=== PATIENT | female | born 1950 | race Caucasian/White ===

== ENCOUNTER 2017-11-12 10:06 | Day surgery (SDC) | payer MEDICARE ==
[2017-11-12] MEDS ORDERED: OXYB5TAB11 PO (15:24)
[2017-11-12] MEDS ORDERED: METO-395 PO (15:24)
[2017-11-12] MEDS ORDERED: INSU100C10 SQ (15:24)
[2017-11-12] MEDS ORDERED: LURA20TA PO (15:24)
[2017-11-12] MEDS ORDERED: FLUV25TA3 PO (15:24)
[2017-11-12] MEDS ORDERED: GABA600T2 PO (15:24)
== END 2017-11-12 11:44 | disposition home or self-care (01) ==
LOC: WOUND CARE 10:06
PROVIDERS: ATTEND Surgery
DX: L97.521 Non-pressure chronic ulcer of other part of left foot limited to breakdown of skin (principal); M86.8X7 Other osteomyelitis, ankle and foot
CPT/HCPCS: 11042; 36416; 82948; A6021; A6209

== ENCOUNTER 2017-11-19 08:54 | Day surgery (SDC) | payer MEDICARE ==
[~2017-11-19 08:54] MED LIST: FLUV25TA3 PO; GABA600T2 PO; INSU100C10 SQ; LURA20TA PO; METO-395 PO; OXYB5TAB11 PO
== END 2017-11-19 10:39 | disposition home or self-care (01) ==
LOC: WOUND CARE 08:54
PROVIDERS: ATTEND Surgery
DX: E11.621 Type 2 diabetes mellitus with foot ulcer (principal); L97.521 Non-pressure chronic ulcer of other part of left foot limited to breakdown of skin; E11.69 Type 2 diabetes mellitus with other specified complication; M86.8X7 Other osteomyelitis, ankle and foot; I10 Essential (primary) hypertension; E78.00 Pure hypercholesterolemia, unspecified
CPT/HCPCS: 11042; 36416; 82948; A6021; A6209

== ENCOUNTER 2017-11-26 08:56 | Day surgery (SDC) | payer MEDICARE ==
[2017-11-26] MEDS ORDERED: LIDOcaine 2% 5ml jelly ONE (09:45)
[2017-11-26] MEDS ORDERED: LIDOcaine 1%/PF (10mg/ml) 5ml vial ONE (10:13)
== END 2017-11-26 11:29 | disposition home or self-care (01) ==
LOC: WOUND CARE 08:56
PROVIDERS: ATTEND Surgery
DX: E11.621 Type 2 diabetes mellitus with foot ulcer (principal); L97.521 Non-pressure chronic ulcer of other part of left foot limited to breakdown of skin; E11.69 Type 2 diabetes mellitus with other specified complication; M86.8X7 Other osteomyelitis, ankle and foot; I10 Essential (primary) hypertension; E78.00 Pure hypercholesterolemia, unspecified; Z87.891 Personal history of nicotine dependence; Z90.49 Acquired absence of other specified parts of digestive tract
CPT/HCPCS: 10061; 36416; 82948; 87070; 87075; 87077; 87102; A6021; A6222; A6266; J2001

== ENCOUNTER 2017-11-29 08:50 | Day surgery (SDC) | payer MEDICARE, MEDICAID | END 2017-11-29 11:05 | disposition home or self-care (01) | LOC: WOUND CARE 08:50 | PROVIDERS: ATTEND Surgery | DX: E11.621 Type 2 diabetes mellitus with foot ulcer (principal); L97.521 Non-pressure chronic ulcer of other part of left foot limited to breakdown of skin; L97.411 Non-pressure chronic ulcer of right heel and midfoot limited to breakdown of skin; E11.69 Type 2 diabetes mellitus with other specified complication; I10 Essential (primary) hypertension; M86.8X7 Other osteomyelitis, ankle and foot; E78.00 Pure hypercholesterolemia, unspecified; Z90.49 Acquired absence of other specified parts of digestive tract; Z87.891 Personal history of nicotine dependence | CPT/HCPCS: 11042; 36416; 82948; A6209; A6222; A6266 ==

== ENCOUNTER 2017-12-06 09:05 | Day surgery (SDC) | payer MEDICARE, MEDICAID | END 2017-12-06 11:00 | disposition home or self-care (01) | LOC: WOUND CARE 09:05 | PROVIDERS: ATTEND Surgery | DX: E11.621 Type 2 diabetes mellitus with foot ulcer (principal); L97.521 Non-pressure chronic ulcer of other part of left foot limited to breakdown of skin; L97.411 Non-pressure chronic ulcer of right heel and midfoot limited to breakdown of skin; E11.69 Type 2 diabetes mellitus with other specified complication; M86.8X7 Other osteomyelitis, ankle and foot; I10 Essential (primary) hypertension; E78.00 Pure hypercholesterolemia, unspecified; Z90.49 Acquired absence of other specified parts of digestive tract; Z87.891 Personal history of nicotine dependence | CPT/HCPCS: 11042; 97597; A6021; A6206; A6209; A6212 ==

== ENCOUNTER 2017-12-14 09:40 | Day surgery (SDC) | payer MEDICARE, MEDICAID | END 2017-12-14 11:12 | disposition home or self-care (01) | LOC: WOUND CARE 09:40 | PROVIDERS: ATTEND Surgery | DX: E11.621 Type 2 diabetes mellitus with foot ulcer (principal); L97.521 Non-pressure chronic ulcer of other part of left foot limited to breakdown of skin; L97.411 Non-pressure chronic ulcer of right heel and midfoot limited to breakdown of skin; E11.69 Type 2 diabetes mellitus with other specified complication; M86.8X7 Other osteomyelitis, ankle and foot; I10 Essential (primary) hypertension; E78.00 Pure hypercholesterolemia, unspecified; Z90.49 Acquired absence of other specified parts of digestive tract; Z87.891 Personal history of nicotine dependence | CPT/HCPCS: 11042; 36416; 82948; A6021; A6206; A6212; A6446 ==

== ENCOUNTER 2017-12-21 11:11 | Day surgery (SDC) | payer MEDICARE, MEDICAID | END 2017-12-21 13:16 | disposition home or self-care (01) | LOC: WOUND CARE 11:11 | PROVIDERS: ATTEND Surgery | DX: E11.621 Type 2 diabetes mellitus with foot ulcer (principal); L97.411 Non-pressure chronic ulcer of right heel and midfoot limited to breakdown of skin; L97.521 Non-pressure chronic ulcer of other part of left foot limited to breakdown of skin; E11.69 Type 2 diabetes mellitus with other specified complication; M86.8X7 Other osteomyelitis, ankle and foot; I10 Essential (primary) hypertension; E78.00 Pure hypercholesterolemia, unspecified; Z90.49 Acquired absence of other specified parts of digestive tract; Z87.891 Personal history of nicotine dependence | CPT/HCPCS: 11042; 36416; 82948; 97597; A6021; A6206; A6446 ==

== ENCOUNTER 2017-12-28 09:41 | Day surgery (SDC) | payer MEDICARE, MEDICAID | END 2017-12-28 10:46 | disposition home or self-care (01) | LOC: WOUND CARE 09:41 | PROVIDERS: ATTEND Surgery | DX: E11.621 Type 2 diabetes mellitus with foot ulcer (principal); L97.411 Non-pressure chronic ulcer of right heel and midfoot limited to breakdown of skin; L97.521 Non-pressure chronic ulcer of other part of left foot limited to breakdown of skin; E11.69 Type 2 diabetes mellitus with other specified complication; M86.8X7 Other osteomyelitis, ankle and foot; I10 Essential (primary) hypertension; E78.00 Pure hypercholesterolemia, unspecified; Z90.49 Acquired absence of other specified parts of digestive tract; Z87.891 Personal history of nicotine dependence | CPT/HCPCS: 36416; 82948; 97597; A6021; A6206; A6209 ==

== ENCOUNTER 2018-01-03 09:56 | Day surgery (SDC) | payer MEDICARE, MEDICAID | END 2018-01-03 11:57 | disposition home or self-care (01) | LOC: WOUND CARE 09:56 | PROVIDERS: ATTEND Surgery | DX: E11.621 Type 2 diabetes mellitus with foot ulcer (principal); L97.411 Non-pressure chronic ulcer of right heel and midfoot limited to breakdown of skin; L97.521 Non-pressure chronic ulcer of other part of left foot limited to breakdown of skin; E11.69 Type 2 diabetes mellitus with other specified complication; M86.8X7 Other osteomyelitis, ankle and foot; I10 Essential (primary) hypertension; E78.00 Pure hypercholesterolemia, unspecified; Z90.49 Acquired absence of other specified parts of digestive tract; Z87.891 Personal history of nicotine dependence | CPT/HCPCS: 11042; 36416; 82948; A4414; A6021; A6212; A6446 ==

== ENCOUNTER 2018-01-11 10:12 | Outpatient (CLI) | payer MEDICARE, MEDICAID | END 2018-01-11 11:00 | disposition home or self-care (01) | LOC: WOUND CARE 10:12 | PROVIDERS: ATTEND Surgery | DX: E11.621 Type 2 diabetes mellitus with foot ulcer (principal); L97.411 Non-pressure chronic ulcer of right heel and midfoot limited to breakdown of skin; L97.521 Non-pressure chronic ulcer of other part of left foot limited to breakdown of skin; E11.69 Type 2 diabetes mellitus with other specified complication; M86.8X7 Other osteomyelitis, ankle and foot; I10 Essential (primary) hypertension; E78.00 Pure hypercholesterolemia, unspecified; Z90.49 Acquired absence of other specified parts of digestive tract; Z87.891 Personal history of nicotine dependence | CPT/HCPCS: 36416; 82948; 99211; A4414; A6206; A6209; A6212 ==

== ENCOUNTER 2018-01-18 10:08 | Day surgery (SDC) | payer MEDICARE, MEDICAID | END 2018-01-18 12:21 | disposition home or self-care (01) | LOC: WOUND CARE 10:08 | PROVIDERS: ATTEND Surgery | DX: E11.621 Type 2 diabetes mellitus with foot ulcer (principal); L97.411 Non-pressure chronic ulcer of right heel and midfoot limited to breakdown of skin; L97.521 Non-pressure chronic ulcer of other part of left foot limited to breakdown of skin; E11.69 Type 2 diabetes mellitus with other specified complication; M86.8X7 Other osteomyelitis, ankle and foot; I10 Essential (primary) hypertension; E78.00 Pure hypercholesterolemia, unspecified; Z90.49 Acquired absence of other specified parts of digestive tract; Z87.891 Personal history of nicotine dependence | CPT/HCPCS: 11042; 36416; 82948; A4414; A6021; A6206 ==

== ENCOUNTER 2018-01-25 09:59 | Day surgery (SDC) | payer MEDICARE, MEDICAID | END 2018-01-25 10:39 | disposition home or self-care (01) | LOC: WOUND CARE 09:59 | PROVIDERS: ATTEND Surgery | DX: E11.621 Type 2 diabetes mellitus with foot ulcer (principal); L97.521 Non-pressure chronic ulcer of other part of left foot limited to breakdown of skin; E11.69 Type 2 diabetes mellitus with other specified complication; M86.8X7 Other osteomyelitis, ankle and foot; I10 Essential (primary) hypertension; E78.00 Pure hypercholesterolemia, unspecified; Z90.49 Acquired absence of other specified parts of digestive tract; Z87.891 Personal history of nicotine dependence | CPT/HCPCS: 36416; 82948; 97597; A6021; A6206; A6446 ==

== ENCOUNTER 2018-02-01 10:01 | Outpatient (CLI) | payer MEDICARE, MEDICAID | END 2018-02-01 11:34 | disposition home or self-care (01) | LOC: WOUND CARE 10:01 | PROVIDERS: ATTEND Surgery | DX: E11.621 Type 2 diabetes mellitus with foot ulcer (principal); L97.521 Non-pressure chronic ulcer of other part of left foot limited to breakdown of skin; E11.69 Type 2 diabetes mellitus with other specified complication; M86.8X7 Other osteomyelitis, ankle and foot; I10 Essential (primary) hypertension; E78.00 Pure hypercholesterolemia, unspecified; Z90.49 Acquired absence of other specified parts of digestive tract; Z87.891 Personal history of nicotine dependence | CPT/HCPCS: 36416; 82948; 99211; A6212; A6446 ==

== ENCOUNTER 2018-02-01 11:27 | Inpatient (IN) | payer MEDICARE, MEDICAID ==
[~2018-02-01] VITALS: Ht 172.7 cm; Wt 90.9 kg
[2018-02-01] MEDS ORDERED: CefTRIAXone 2gm/D5W 50ml 50 ML IV ONE (13:45)
[2018-02-01] MEDS ORDERED: ondansetron/PF 4mg/2ml inj IV PRN (14:25)
[2018-02-01] MEDS ORDERED: dextrose 50%-water 50ml dispensing syringe IV PRN ×2 (14:25)
[2018-02-01] MEDS ORDERED: MESSAGE TO PHARMACY PO ONE (14:25)
[2018-02-01] MEDS ORDERED: glucagon, human recombinant 1mg kit SUBCUT PRN (14:25)
[2018-02-01] MEDS ORDERED: dextrose ORAL solution 15 GM/59 ML bottle PO PRN ×2 (14:25)
[2018-02-01] MEDS ORDERED: magnesium hydroxide 30ml (MOM) UD suspension PO PRN (14:25)
[2018-02-01] MEDS ORDERED: morphine 4 MG/ML inj SYRINge IV PRN (14:25)
[2018-02-01] MEDS ORDERED: mag hydrox/Alum hydrox/simeth 30ml oral suspension PO PRN (14:25)
[2018-02-01] MEDS ORDERED: acetaminophen 325mg tablet PO PRN (14:25)
[2018-02-01 14:36] LABS: BASOPHILS # (AUTO) 0.1 X10'3 (0-0.2); BASOPHILS % (AUTO) 1.3 % (0-1); EOSINOPHILS # (AUTO) 0.2 X10'3 (0-0.9); EOSINOPHILS % (AUTO) 1.7 % (0-6); HEMATOCRIT 32.4 % (35.0-45.0); HEMOGLOBIN 11.2 g/dl (12.0-16.0); LYMPHOCYTES # (AUTO) 1.9 X10'3 (1.1-4.8); LYMPHOCYTES % (AUTO) 16.6 % (21-51); MEAN CORPUSCULAR HEMOGLOBIN 29.6 PG (27.0-31.0); MEAN CORPUSCULAR HGB CONC 34.5 % (33.0-36.5); MEAN CORPUSCULAR VOLUME 85.9 FL (78-98); MEAN PLATELET VOLUME 7.5 FL (7.4-10.4); MONOCYTES # (AUTO) 0.8 X10'3 (0-0.9); MONOCYTES % (AUTO) 6.8 % (2-12); NEUTROPHILS # (AUTO) 8.2 X10'3 (1.8-7.7); NEUTROPHILS % (AUTO) 73.6 % (42-75); PLATELET COUNT 200 X10'3 (140-440); RED BLOOD COUNT 3.77 X10'6 (4.20-5.60); RED CELL DISTRIBUTION WIDTH 14.3 % (11.5-14.5); WHITE BLOOD COUNT 11.2 X10'3 (4.5-11.0)
[2018-02-01 14:46] LABS: PARTIAL THROMBOPLASTIN TIME 32 SECONDS (22-32)
[2018-02-01 14:51] LABS: ALANINE AMINOTRANSFERASE 19 U/L (12-78); ALBUMIN 2.9 G/DL (3.4-5.0); ALBUMIN/GLOBULIN RATIO 0.6 (1.1-1.5); ALKALINE PHOSPHATASE 63 IU/L (46-116); ANION GAP 11 (8-16); ASPARTATE AMINO TRANSFERASE 11 U/L (10-37); BILIRUBIN,TOTAL 0.5 MG/DL (0.1-1.0); BLOOD UREA NITROGEN 51 MG/DL (7-18); BUN/CREATININE RATIO 24.2 (6.6-38.0); CALCIUM 9.3 MG/DL (8.5-10.1); CHLORIDE 107 MMOL/L (99-107); CREATININE 2.11 MG/DL (0.40-0.90); GLUCOSE 145 MG/DL (70-104); MAGNESIUM 1.9 MG/DL (1.5-2.4); POTASSIUM 4.4 MMOL/L (3.5-5.1); SODIUM 142 MMOL/L (135-145); TOTAL PROTEIN 7.4 G/DL (6.4-8.2); eGFR 23 ML/MIN
[2018-02-01] MEDS ORDERED: vancomycin/NS 1 GM ADD-VANTAGE 250 ML X 1 DOSE IV ONE ×2 (15:00→17:30)
[2018-02-01 15:56] LABS: HEMOGLOBIN A1C 6.7 % (4.5-6.2)
[2018-02-01 18:10] LABS: CLARITY,URINE Clear (Clear); COLOR,URINE Yellow (Yellow); GLUCOSE, URINE Negative (Neg); KETONES,URINE Negative (Neg); LEUKOCYTE ESTERASE ,URINE Trace (Neg); NITRITES, URINE Negative (Neg); OCCULT BLOOD,URINE Negative (Neg); PROTEIN,URINE Negative (Neg)
[2018-02-01 18:11] LABS: UA COLLECTION TYPE CLN CATCH MIDSTREAM
[2018-02-01 18:28] LABS: BACTERIA,URINE NONE SEEN /HPF (Neg); RBC,URINE 0-2 /HPF (0-2); SQUAMOUS EPITHELIAL CELL,UR FEW /LPF (FEW)
[2018-02-01 19:15] VITALS: BP 127/52
[2018-02-01] MEDS: HYDROcodone/acetaminophen 5mg/325mg tablet PO PRN (20:49)
[2018-02-01] MEDS: docusate sod 100mg capsule PO SCH (20:49)
[2018-02-01] MEDS: oxybutynin 5mg tablet PO SCH (20:49)
[2018-02-01] MEDS: insulin glargine (Lantus) pen - multi-dose SQ SCH (21:00)
[2018-02-01] MEDS ORDERED: temazepam 15mg capsule PO ONE (22:15)
[2018-02-02] VITALS: BP 134/35
[2018-02-02] MEDS: gabapentin 300mg capsule PO SCH ×3 (00:34→16:41)
[2018-02-02 05:54] LABS: BASOPHILS % (AUTO) 0.5 % (0-1); EOSINOPHILS # (AUTO) 0.3 X10'3 (0-0.9); EOSINOPHILS % (AUTO) 3.3 % (0-6); HEMATOCRIT 28.2 % (35.0-45.0); HEMOGLOBIN 9.8 g/dl (12.0-16.0); LYMPHOCYTES # (AUTO) 1.9 X10'3 (1.1-4.8); LYMPHOCYTES % (AUTO) 22.5 % (21-51); MEAN CORPUSCULAR HEMOGLOBIN 29.5 PG (27.0-31.0); MEAN CORPUSCULAR HGB CONC 34.6 % (33.0-36.5); MEAN CORPUSCULAR VOLUME 85.4 FL (78-98); MEAN PLATELET VOLUME 8.2 FL (7.4-10.4); MONOCYTES # (AUTO) 0.6 X10'3 (0-0.9); MONOCYTES % (AUTO) 6.8 % (2-12); NEUTROPHILS # (AUTO) 5.8 X10'3 (1.8-7.7); NEUTROPHILS % (AUTO) 66.9 % (42-75); PLATELET COUNT 173 X10'3 (140-440); RED BLOOD COUNT 3.31 X10'6 (4.20-5.60); RED CELL DISTRIBUTION WIDTH 13.5 % (11.5-14.5); WHITE BLOOD COUNT 8.6 X10'3 (4.5-11.0)
[2018-02-02 06:04] LABS: ALANINE AMINOTRANSFERASE 17 U/L (12-78); ALBUMIN 2.4 G/DL (3.4-5.0); ALBUMIN/GLOBULIN RATIO 0.6 (1.1-1.5); ALKALINE PHOSPHATASE 56 IU/L (46-116); ANION GAP 9 (8-16); ASPARTATE AMINO TRANSFERASE 9 U/L (10-37); BILIRUBIN,TOTAL 0.3 MG/DL (0.1-1.0); BLOOD UREA NITROGEN 49 MG/DL (7-18); BUN/CREATININE RATIO 22.4 (6.6-38.0); CALCIUM 8.5 MG/DL (8.5-10.1); CHLORIDE 109 MMOL/L (99-107); CREATININE 2.19 MG/DL (0.40-0.90); GLUCOSE 167 MG/DL (70-104); MAGNESIUM 1.6 MG/DL (1.5-2.4); PHOSPHORUS 4.7 MG/DL (2.3-4.5); POTASSIUM 4.4 MMOL/L (3.5-5.1); SODIUM 141 MMOL/L (135-145); TOTAL CARBON DIOXIDE 23.2 MMOL/L (24-32); TOTAL PROTEIN 6.3 G/DL (6.4-8.2); eGFR 22 ML/MIN
[2018-02-02] MEDS: CefTRIAXone/D5W-Rocephin 1gm 50 ML IV SCH (07:44)
[2018-02-02] MEDS: docusate sod 100mg capsule PO SCH ×2 (07:45→22:41)
[2018-02-02] MEDS: oxybutynin 5mg tablet PO SCH ×3 (07:46→22:40)
[2018-02-02] MEDS: HYDROcodone/acetaminophen 5mg/325mg tablet PO PRN ×2 (07:47→22:40)
[2018-02-02 08:00] VITALS: BP 124/43
[2018-02-02] MEDS ORDERED: enoxaparin 40mg/0.4ml syringe SUBCUT SCH (08:00)
[2018-02-02 11:00] VITALS: BP 138/57
[2018-02-02] MEDS: insulin Lispro (HumaLOG) vial - multi-dose SQ SCH ×2 (13:43→19:54)
[2018-02-02] MEDS: vancomycin inj 1,250 MG in normal saline 250ml IV soln 250 ML IV SCH (16:42)
[2018-02-02 20:00] VITALS: BP 130/50
[2018-02-02] MEDS: temazepam 15mg capsule PO PRN (22:39)
[2018-02-02] MEDS: lactobacillus rhamnosus 10,000 MMU CELLS/CAPSULE PO SCH (22:40)
[2018-02-02] MEDS: insulin glargine (Lantus) pen - multi-dose SQ SCH (22:53)
[2018-02-03] VITALS: BP 137/80
[2018-02-03] MEDS: gabapentin 300mg capsule PO SCH ×3 (00:11→17:04)
[2018-02-03] MEDS: metroNIDAZOLE-Flagyl 500mg/NS 100 ML IV SCH ×3 (00:11→17:05)
[2018-02-03 05:48] LABS: BASOPHILS % (AUTO) 0.5 % (0-1); EOSINOPHILS # (AUTO) 0.3 X10'3 (0-0.9); EOSINOPHILS % (AUTO) 4.6 % (0-6); HEMOGLOBIN 10.8 g/dl (12.0-16.0); LYMPHOCYTES % (AUTO) 28.3 % (21-51); MEAN CORPUSCULAR HEMOGLOBIN 29.7 PG (27.0-31.0); MEAN CORPUSCULAR HGB CONC 34.8 % (33.0-36.5); MEAN CORPUSCULAR VOLUME 85.4 FL (78-98); MEAN PLATELET VOLUME 7.4 FL (7.4-10.4); MONOCYTES # (AUTO) 0.6 X10'3 (0-0.9); MONOCYTES % (AUTO) 7.8 % (2-12); NEUTROPHILS # (AUTO) 4.2 X10'3 (1.8-7.7); NEUTROPHILS % (AUTO) 58.8 % (42-75); PLATELET COUNT 230 X10'3 (140-440); RED BLOOD COUNT 3.62 X10'6 (4.20-5.60); RED CELL DISTRIBUTION WIDTH 14.3 % (11.5-14.5); WHITE BLOOD COUNT 7.2 X10'3 (4.5-11.0)
[2018-02-03 06:06] LABS: ALANINE AMINOTRANSFERASE 16 U/L (12-78); ALBUMIN 2.6 G/DL (3.4-5.0); ALBUMIN/GLOBULIN RATIO 0.6 (1.1-1.5); ALKALINE PHOSPHATASE 64 IU/L (46-116); ANION GAP 13 (8-16); ASPARTATE AMINO TRANSFERASE 10 U/L (10-37); BILIRUBIN,TOTAL 0.3 MG/DL (0.1-1.0); BLOOD UREA NITROGEN 49 MG/DL (7-18); BUN/CREATININE RATIO 24.4 (6.6-38.0); CALCIUM 8.9 MG/DL (8.5-10.1); CHLORIDE 108 MMOL/L (99-107); CREATININE 2.01 MG/DL (0.40-0.90); GLUCOSE 136 MG/DL (70-104); MAGNESIUM 1.8 MG/DL (1.5-2.4); PHOSPHORUS 5.7 MG/DL (2.3-4.5); POTASSIUM 4.6 MMOL/L (3.5-5.1); SODIUM 143 MMOL/L (135-145); eGFR 25 ML/MIN
[2018-02-03 08:00] VITALS: BP 142/50
[2018-02-03] MEDS: CefTRIAXone/D5W-Rocephin 1gm 50 ML IV SCH (09:11)
[2018-02-03] MEDS: oxybutynin 5mg tablet PO SCH ×3 (09:27→20:48)
[2018-02-03] MEDS: lactobacillus rhamnosus 10,000 MMU CELLS/CAPSULE PO SCH ×2 (09:27→20:48)
[2018-02-03] MEDS: docusate sod 100mg capsule PO SCH ×2 (09:27→20:48)
[2018-02-03] MEDS: enoxaparin 30mg/0.3ml syringe SUBCUT SCH (09:28)
[2018-02-03] MEDS: insulin Lispro (HumaLOG) vial - multi-dose SQ SCH ×3 (09:37→19:16)
[2018-02-03 12:00] VITALS: BP 141/71
[2018-02-03] MEDS: vancomycin inj 1,250 MG in normal saline 250ml IV soln 250 ML IV SCH (17:45)
[2018-02-03 20:00] VITALS: BP 134/50
[2018-02-03] MEDS: insulin glargine (Lantus) pen - multi-dose SQ SCH (22:18)
[2018-02-04] VITALS (23 sets, daily range): BP systolic 113–150; BP diastolic 27–67
[2018-02-04] MEDS: temazepam 15mg capsule PO PRN (00:05)
[2018-02-04] MEDS: gabapentin 300mg capsule PO SCH ×2 (00:05→08:30)
[2018-02-04] MEDS: metroNIDAZOLE-Flagyl 500mg/NS 100 ML IV SCH ×3 (00:08→15:27)
[2018-02-04 05:37] LABS: BASOPHILS # (AUTO) 0.1 X10'3 (0-0.2); BASOPHILS % (AUTO) 0.8 % (0-1); EOSINOPHILS # (AUTO) 0.3 X10'3 (0-0.9); EOSINOPHILS % (AUTO) 4.6 % (0-6); HEMATOCRIT 30.4 % (35.0-45.0); HEMOGLOBIN 10.4 g/dl (12.0-16.0); LYMPHOCYTES # (AUTO) 1.6 X10'3 (1.1-4.8); LYMPHOCYTES % (AUTO) 25.5 % (21-51); MEAN CORPUSCULAR HEMOGLOBIN 29.1 PG (27.0-31.0); MEAN CORPUSCULAR HGB CONC 34.2 % (33.0-36.5); MEAN CORPUSCULAR VOLUME 85.2 FL (78-98); MEAN PLATELET VOLUME 7.3 FL (7.4-10.4); MONOCYTES # (AUTO) 0.4 X10'3 (0-0.9); NEUTROPHILS % (AUTO) 63.1 % (42-75); PLATELET COUNT 218 X10'3 (140-440); RED BLOOD COUNT 3.57 X10'6 (4.20-5.60); RED CELL DISTRIBUTION WIDTH 14.1 % (11.5-14.5); WHITE BLOOD COUNT 6.3 X10'3 (4.5-11.0)
[2018-02-04 05:54] LABS: INR 1.1 INR; PRE OP PARTIAL THROMB. TIME 26 SECONDS (22-35); PROTHROMBIN TIME 10.9 SECONDS (9.0-12.0)
[2018-02-04 06:31] LABS: ALANINE AMINOTRANSFERASE 15 U/L (12-78); ALBUMIN 2.5 G/DL (3.4-5.0); ALBUMIN/GLOBULIN RATIO 0.6 (1.1-1.5); ALKALINE PHOSPHATASE 59 IU/L (46-116); ANION GAP 10 (8-16); ASPARTATE AMINO TRANSFERASE 9 U/L (10-37); BILIRUBIN,TOTAL 0.3 MG/DL (0.1-1.0); BLOOD UREA NITROGEN 48 MG/DL (7-18); BUN/CREATININE RATIO 25.3 (6.6-38.0); CHLORIDE 108 MMOL/L (99-107); GLUCOSE 148 MG/DL (70-104); MAGNESIUM 1.8 MG/DL (1.5-2.4); PHOSPHORUS 4.5 MG/DL (2.3-4.5); POTASSIUM 4.7 MMOL/L (3.5-5.1); SODIUM 142 MMOL/L (135-145); TOTAL CARBON DIOXIDE 23.8 MMOL/L (24-32); TOTAL PROTEIN 6.6 G/DL (6.4-8.2); eGFR 26 ML/MIN
[2018-02-04] MEDS: CefTRIAXone/D5W-Rocephin 1gm 50 ML IV SCH (08:00)
[2018-02-04] MEDS: enoxaparin 30mg/0.3ml syringe SUBCUT SCH (08:00)
[2018-02-04] MEDS: insulin Lispro (HumaLOG) vial - multi-dose SQ SCH ×2 (08:29→19:41)
[2018-02-04] MEDS: docusate sod 100mg capsule PO SCH ×2 (08:30→21:02)
[2018-02-04] MEDS: lactobacillus rhamnosus 10,000 MMU CELLS/CAPSULE PO SCH ×2 (08:30→21:02)
[2018-02-04] MEDS: oxybutynin 5mg tablet PO SCH ×3 (08:30→21:03)
[2018-02-04] MEDS ORDERED: BUPIVAcaine/PF 2.5 mg/ml (0.25%) 30ml vial ONE (09:07)
[2018-02-04] MEDS ORDERED: fentaNYL/PF 50MCG/1 ML 2ML syringe ONE (10:19)
[2018-02-04] MEDS ORDERED: sevoflurane 250ml liquid IH ONE (10:29)
[2018-02-04] MEDS ORDERED: ondansetron/PF 4mg/2ml inj ONE (10:35)
[2018-02-04] MEDS ORDERED: propofol inj 20 ML IV ONE (10:35)
[2018-02-04] MEDS ORDERED: LIDOcaine 2% (20mg/ml) 5ml vial ONE (10:35)
[2018-02-04] MEDS ORDERED: ringers solution, lacted 1,000 ML IV ONE (10:44)
[2018-02-04] MEDS ORDERED: meperidine/PF 50mg/ml syringe IV PRN ×2 (10:45)
[2018-02-04] MEDS ORDERED: ondansetron/PF 4mg/2ml inj IV PRN (10:45)
[2018-02-04] MEDS ORDERED: morphine 4 MG/ML inj SYRINge IV PRN ×2 (10:45)
[2018-02-04] MEDS ORDERED: hydrALAZINE 20mg/ml inj. IV PRN (10:45)
[2018-02-04] MEDS ORDERED: labetalol 20mg/4ml (5mg/ml) syringe IV PRN (10:45)
[2018-02-04] MEDS ORDERED: meperidine/PF 50mg/ml syringe IV ONE (10:45)
[2018-02-04] MEDS ORDERED: povidone-iodine 10% topical ointment 28.4gm TP ONE (11:14)
[2018-02-04] MEDS: normal saline 1000ml 1,000 ML IV SCH (15:27)
[2018-02-04] MEDS: gabapentin 100mg capsule PO SCH (15:27)
[2018-02-04] MEDS: vancomycin inj 1,250 MG in normal saline 250ml IV soln 250 ML IV SCH (17:09)
[2018-02-04] MEDS: HYDROcodone/acetaminophen 5mg/325mg tablet PO PRN (21:03)
[2018-02-04] MEDS: insulin glargine (Lantus) pen - multi-dose SQ SCH (22:00)
[2018-02-05] VITALS: BP 124/52
[2018-02-05] MEDS: gabapentin 100mg capsule PO SCH ×4 (00:32→23:03)
[2018-02-05] MEDS: temazepam 15mg capsule PO PRN ×2 (00:32→23:03)
[2018-02-05] MEDS: metroNIDAZOLE-Flagyl 500mg/NS 100 ML IV SCH ×4 (00:32→23:03)
[2018-02-05 05:34] LABS: BASOPHILS % (AUTO) 0.5 % (0-1); EOSINOPHILS # (AUTO) 0.3 X10'3 (0-0.9); EOSINOPHILS % (AUTO) 4.2 % (0-6); HEMATOCRIT 29.5 % (35.0-45.0); HEMOGLOBIN 10.1 g/dl (12.0-16.0); LYMPHOCYTES # (AUTO) 1.1 X10'3 (1.1-4.8); LYMPHOCYTES % (AUTO) 14.4 % (21-51); MEAN CORPUSCULAR HEMOGLOBIN 29.4 PG (27.0-31.0); MEAN CORPUSCULAR HGB CONC 34.3 % (33.0-36.5); MEAN CORPUSCULAR VOLUME 85.9 FL (78-98); MONOCYTES # (AUTO) 0.5 X10'3 (0-0.9); MONOCYTES % (AUTO) 6.3 % (2-12); NEUTROPHILS # (AUTO) 5.6 X10'3 (1.8-7.7); NEUTROPHILS % (AUTO) 74.6 % (42-75); PLATELET COUNT 220 X10'3 (140-440); RED BLOOD COUNT 3.44 X10'6 (4.20-5.60); RED CELL DISTRIBUTION WIDTH 14.2 % (11.5-14.5); WHITE BLOOD COUNT 7.6 X10'3 (4.5-11.0)
[2018-02-05 05:37] LABS: ALANINE AMINOTRANSFERASE 158 U/L (12-78); ALBUMIN 2.4 G/DL (3.4-5.0); ALBUMIN/GLOBULIN RATIO 0.6 (1.1-1.5); ALKALINE PHOSPHATASE 179 IU/L (46-116); ANION GAP 8 (8-16); ASPARTATE AMINO TRANSFERASE 164 U/L (10-37); BILIRUBIN,TOTAL 0.3 MG/DL (0.1-1.0); BLOOD UREA NITROGEN 39 MG/DL (7-18); BUN/CREATININE RATIO 23.4 (6.6-38.0); CALCIUM 8.7 MG/DL (8.5-10.1); CHLORIDE 109 MMOL/L (99-107); CREATININE 1.67 MG/DL (0.40-0.90); GLUCOSE 111 MG/DL (70-104); MAGNESIUM 1.8 MG/DL (1.5-2.4); PHOSPHORUS 3.8 MG/DL (2.3-4.5); POTASSIUM 5.4 MMOL/L (3.5-5.1); SODIUM 143 MMOL/L (135-145); TOTAL PROTEIN 6.2 G/DL (6.4-8.2); eGFR 30 ML/MIN
[2018-02-05] MEDS: normal saline 1000ml 1,000 ML IV SCH ×3 (06:00→23:06)
[2018-02-05 07:00] VITALS: BP 128/44
[2018-02-05] MEDS: HYDROcodone/acetaminophen 5mg/325mg tablet PO PRN (08:10)
[2018-02-05] MEDS: CefTRIAXone/D5W-Rocephin 1gm 50 ML IV SCH (08:10)
[2018-02-05] MEDS: docusate sod 100mg capsule PO SCH ×2 (08:11→19:27)
[2018-02-05] MEDS: enoxaparin 30mg/0.3ml syringe SUBCUT SCH (08:11)
[2018-02-05] MEDS: oxybutynin 5mg tablet PO SCH ×3 (08:11→21:52)
[2018-02-05] MEDS: lactobacillus rhamnosus 10,000 MMU CELLS/CAPSULE PO SCH ×2 (08:11→19:27)
[2018-02-05] MEDS: insulin Lispro (HumaLOG) vial - multi-dose SQ SCH ×3 (08:58→19:26)
[2018-02-05 12:00] VITALS: BP 118/37
[2018-02-05] MEDS: oxyCODONE IR 5mg (immed. release) tablet PO PRN (14:32)
[2018-02-05] MEDS ORDERED: VANCOMYCIN LEVEL IV NR (15:30)
[2018-02-05 18:00] VITALS: BP 135/51
[2018-02-05] MEDS: vancomycin/NS 1 GM ADD-VANTAGE 250 ML IV SCH (19:27)
[2018-02-05] MEDS: insulin glargine (Lantus) pen - multi-dose SQ SCH (21:00)
[2018-02-06] VITALS: BP 163/61
[2018-02-06 05:36] LABS: BASOPHILS % (AUTO) 0.5 % (0-1); EOSINOPHILS # (AUTO) 0.4 X10'3 (0-0.9); EOSINOPHILS % (AUTO) 4.8 % (0-6); HEMATOCRIT 27.1 % (35.0-45.0); HEMOGLOBIN 9.3 g/dl (12.0-16.0); LYMPHOCYTES # (AUTO) 1.6 X10'3 (1.1-4.8); LYMPHOCYTES % (AUTO) 20.9 % (21-51); MEAN CORPUSCULAR HEMOGLOBIN 29.3 PG (27.0-31.0); MEAN CORPUSCULAR HGB CONC 34.2 % (33.0-36.5); MEAN CORPUSCULAR VOLUME 85.7 FL (78-98); MEAN PLATELET VOLUME 6.9 FL (7.4-10.4); MONOCYTES # (AUTO) 0.6 X10'3 (0-0.9); MONOCYTES % (AUTO) 7.4 % (2-12); NEUTROPHILS % (AUTO) 66.4 % (42-75); PLATELET COUNT 211 X10'3 (140-440); RED BLOOD COUNT 3.16 X10'6 (4.20-5.60); RED CELL DISTRIBUTION WIDTH 13.9 % (11.5-14.5); WHITE BLOOD COUNT 7.5 X10'3 (4.5-11.0)
[2018-02-06 05:55] LABS: ALANINE AMINOTRANSFERASE 96 U/L (12-78); ALBUMIN 2.3 G/DL (3.4-5.0); ALBUMIN/GLOBULIN RATIO 0.6 (1.1-1.5); ALKALINE PHOSPHATASE 131 IU/L (46-116); ANION GAP 9 (8-16); ASPARTATE AMINO TRANSFERASE 50 U/L (10-37); BILIRUBIN,TOTAL 0.2 MG/DL (0.1-1.0); BLOOD UREA NITROGEN 33 MG/DL (7-18); BUN/CREATININE RATIO 20.4 (6.6-38.0); CALCIUM 8.7 MG/DL (8.5-10.1); CHLORIDE 108 MMOL/L (99-107); CREATININE 1.62 MG/DL (0.40-0.90); GLUCOSE 127 MG/DL (70-104); MAGNESIUM 1.7 MG/DL (1.5-2.4); PHOSPHORUS 3.8 MG/DL (2.3-4.5); POTASSIUM 4.6 MMOL/L (3.5-5.1); SODIUM 143 MMOL/L (135-145); TOTAL CARBON DIOXIDE 26.1 MMOL/L (24-32); eGFR 32 ML/MIN
[2018-02-06 07:06] VITALS: BP 147/50
[2018-02-06] MEDS: docusate sod 100mg capsule PO SCH ×2 (09:01→19:33)
[2018-02-06] MEDS: enoxaparin 30mg/0.3ml syringe SUBCUT SCH (09:01)
[2018-02-06] MEDS: CefTRIAXone/D5W-Rocephin 1gm 50 ML IV SCH (09:01)
[2018-02-06] MEDS: gabapentin 100mg capsule PO SCH (09:02)
[2018-02-06] MEDS: lactobacillus rhamnosus 10,000 MMU CELLS/CAPSULE PO SCH ×2 (09:02→19:33)
[2018-02-06] MEDS: oxybutynin 5mg tablet PO SCH ×3 (09:02→21:43)
[2018-02-06] MEDS: metroNIDAZOLE-Flagyl 500mg/NS 100 ML IV SCH ×3 (09:42→23:33)
[2018-02-06 11:30] VITALS: BP 161/42
[2018-02-06] MEDS: insulin Lispro (HumaLOG) vial - multi-dose SQ SCH ×2 (13:37→19:41)
[2018-02-06] MEDS: oxyCODONE IR 5mg (immed. release) tablet PO PRN ×2 (13:39→17:58)
[2018-02-06] MEDS: gabapentin 400mg capsule PO SCH ×2 (16:57→23:33)
[2018-02-06] MEDS: normal saline 1000ml 1,000 ML IV SCH (16:58)
[2018-02-06 18:00] VITALS: BP 152/52
[2018-02-06] MEDS: vancomycin/NS 1 GM ADD-VANTAGE 250 ML IV SCH (19:33)
[2018-02-06] MEDS: insulin glargine (Lantus) pen - multi-dose SQ SCH (21:00)
[2018-02-06] MEDS: temazepam 15mg capsule PO PRN (23:33)
[2018-02-07] VITALS: BP 153/58
[2018-02-07 06:20] LABS: ALANINE AMINOTRANSFERASE 67 U/L (12-78); ALBUMIN 2.3 G/DL (3.4-5.0); ALBUMIN/GLOBULIN RATIO 0.6 (1.1-1.5); ALKALINE PHOSPHATASE 116 IU/L (46-116); ANION GAP 9 (8-16); ASPARTATE AMINO TRANSFERASE 43 U/L (10-37); BILIRUBIN,TOTAL 0.3 MG/DL (0.1-1.0); BLOOD UREA NITROGEN 28 MG/DL (7-18); BUN/CREATININE RATIO 18.7 (6.6-38.0); CALCIUM 8.7 MG/DL (8.5-10.1); CHLORIDE 109 MMOL/L (99-107); GLUCOSE 114 MG/DL (70-104); POTASSIUM 4.4 MMOL/L (3.5-5.1); SODIUM 143 MMOL/L (135-145); TOTAL PROTEIN 6.1 G/DL (6.4-8.2); eGFR 34 ML/MIN
[2018-02-07] MEDS: metroNIDAZOLE-Flagyl 500mg/NS 100 ML IV SCH (07:45)
[2018-02-07] MEDS: docusate sod 100mg capsule PO SCH ×2 (07:46→20:31)
[2018-02-07] MEDS: lactobacillus rhamnosus 10,000 MMU CELLS/CAPSULE PO SCH ×2 (07:46→20:31)
[2018-02-07] MEDS: gabapentin 400mg capsule PO SCH ×3 (07:47→22:47)
[2018-02-07] MEDS: oxybutynin 5mg tablet PO SCH ×3 (07:47→20:31)
[2018-02-07] MEDS: enoxaparin 40mg/0.4ml syringe SUBCUT SCH (07:48)
[2018-02-07 07:54] VITALS: BP 144/59
[2018-02-07] MEDS: CefTRIAXone/D5W-Rocephin 1gm 50 ML IV SCH (09:38)
[2018-02-07] MEDS: insulin Lispro (HumaLOG) vial - multi-dose SQ SCH ×3 (09:48→18:58)
[2018-02-07] MEDS: normal saline 1000ml 1,000 ML IV SCH (11:23)
[2018-02-07] MEDS: oxyCODONE IR 5mg (immed. release) tablet PO PRN (11:23)
[2018-02-07 13:25] VITALS: BP 154/63
[2018-02-07 20:00] VITALS: BP 144/42
[2018-02-07] MEDS: metroNIDAZOLE 500mg tablet PO SCH (20:31)
[2018-02-07] MEDS: temazepam 15mg capsule PO PRN (22:46)
[2018-02-08] VITALS: BP 162/48
[2018-02-08] MEDS: normal saline 1000ml 1,000 ML IV SCH (01:48)
[2018-02-08 06:08] LABS: ALANINE AMINOTRANSFERASE 59 U/L (12-78); ALBUMIN 2.4 G/DL (3.4-5.0); ALBUMIN/GLOBULIN RATIO 0.6 (1.1-1.5); ALKALINE PHOSPHATASE 107 IU/L (46-116); ANION GAP 7 (8-16); ASPARTATE AMINO TRANSFERASE 34 U/L (10-37); BILIRUBIN,TOTAL 0.3 MG/DL (0.1-1.0); BLOOD UREA NITROGEN 26 MG/DL (7-18); BUN/CREATININE RATIO 17.4 (6.6-38.0); CHLORIDE 108 MMOL/L (99-107); CREATININE 1.49 MG/DL (0.40-0.90); GLUCOSE 111 MG/DL (70-104); POTASSIUM 4.4 MMOL/L (3.5-5.1); SODIUM 141 MMOL/L (135-145); TOTAL CARBON DIOXIDE 25.8 MMOL/L (24-32); TOTAL PROTEIN 6.1 G/DL (6.4-8.2); eGFR 35 ML/MIN
[2018-02-08] MEDS: docusate sod 100mg capsule PO SCH ×2 (07:20→19:19)
[2018-02-08] MEDS: metroNIDAZOLE 500mg tablet PO SCH ×2 (07:20→19:19)
[2018-02-08] MEDS: lactobacillus rhamnosus 10,000 MMU CELLS/CAPSULE PO SCH ×2 (07:20→19:19)
[2018-02-08] MEDS: oxybutynin 5mg tablet PO SCH ×3 (07:21→21:26)
[2018-02-08] MEDS: gabapentin 400mg capsule PO SCH ×2 (07:21→16:02)
[2018-02-08] MEDS: enoxaparin 40mg/0.4ml syringe SUBCUT SCH (07:22)
[2018-02-08 07:30] VITALS: BP 162/55
[2018-02-08] MEDS: insulin Lispro (HumaLOG) vial - multi-dose SQ SCH ×3 (10:12→19:21)
[2018-02-08 11:18] VITALS: BP 162/66
[2018-02-08] MEDS ORDERED: amLODIPine 5mg tablet PO ONE (17:30)
[2018-02-08] MEDS ORDERED: VANCOMYCIN LEVEL IV ONE (19:30)
[2018-02-08] MEDS: temazepam 15mg capsule PO PRN (21:26)
[2018-02-09 07:08] VITALS: BP 154/45
[2018-02-09] MEDS: docusate sod 100mg capsule PO SCH ×2 (08:00→08:11)
[2018-02-09] MEDS ORDERED: levoFLOXACIN 750MG TABLET PO SCH (08:00)
[2018-02-09] MEDS ORDERED: amLODIPine 5mg tablet PO SCH (08:00)
[2018-02-09] MEDS: gabapentin 400mg capsule PO SCH ×2 (08:11)
[2018-02-09] MEDS: metroNIDAZOLE 500mg tablet PO SCH (08:12)
[2018-02-09] MEDS: oxybutynin 5mg tablet PO SCH ×2 (08:12→12:40)
[2018-02-09] MEDS: lactobacillus rhamnosus 10,000 MMU CELLS/CAPSULE PO SCH (08:12)
[2018-02-09] MEDS: insulin Lispro (HumaLOG) vial - multi-dose SQ SCH (08:15)
[2018-02-09] MEDS: enoxaparin 40mg/0.4ml syringe SUBCUT SCH (08:16)
[2018-02-09 11:00] VITALS: BP 159/76
[2018-02-09 12:00] VITALS: BP_SYST 124; BP_SYST 159; BP_DIAS 69; BP_DIAS 76
[2018-02-09] MEDS ORDERED: METR500T4 PO (13:02)
[2018-02-09] MEDS ORDERED: AMLO5TAB16 PO (13:02)
[2018-02-09] MEDS ORDERED: LEVO750T46 PO (13:02)
[2018-03-04] MEDS ORDERED: CLIN300C70 PO (14:32)
== END 2018-02-09 16:06 | disposition home health service (06) | DRG 617 ==
LOC: ER 11:28 → ED HOLD 14:22 → SUR 3N 19:12
PROVIDERS: ADMIT Internal Medicine; ATTEND Family Medicine
PROC: 0Y6Y0Z0 Detachment at Left 5th Toe, Complete, Open Approach (ICD-10-PCS; principal; 2018-02-04 10:20)
DX: E11.69 Type 2 diabetes mellitus with other specified complication (principal); L03.116 Cellulitis of left lower limb; M86.172 Other acute osteomyelitis, left ankle and foot; N17.9 Acute kidney failure, unspecified; E66.9 Obesity, unspecified; E86.0 Dehydration; G89.4 Chronic pain syndrome; M19.90 Unspecified osteoarthritis, unspecified site; R74.0 Nonspecific elevation of levels of transaminase and lactic acid dehydrogenase [LDH]; I10 Essential (primary) hypertension; E78.00 Pure hypercholesterolemia, unspecified; E78.5 Hyperlipidemia, unspecified; J45.909 Unspecified asthma, uncomplicated; M54.30 Sciatica, unspecified side; Z90.49 Acquired absence of other specified parts of digestive tract; Z98.51 Tubal ligation status; Z88.0 Allergy status to penicillin; Z88.2 Allergy status to sulfonamides; Z79.899 Other long term (current) drug therapy; Z87.891 Personal history of nicotine dependence; Z68.30 Body mass index [BMI] 30.0-30.9, adult
CPT/HCPCS: 36415; 71045; 73620; 80053; 80202; 81001; 82948; 83036; 83605; 83735; 84100; 84132; 84145; 85025; 85610; 85730; 87040; 87070; 87088; 88305; 93005; 97116; 97162; 97530; 99285; A6212; A6266; A6446; A6449; A7000; J0696; J1650; J1815; J2001; J2270; J2405; J2704; J3010; J3370; J3490; J7030; J7120

== ENCOUNTER 2018-02-14 08:51 | Day surgery (SDC) | payer MEDICARE, MEDICAID ==
[~2018-02-14 08:51] MED LIST changes: +AMLO5TAB16 PO; +LEVO750T46 PO; +METR500T4 PO
== END 2018-02-14 10:18 | disposition home or self-care (01) ==
LOC: WOUND CARE 08:51
PROVIDERS: ATTEND Surgery
DX: T87.89 Other complications of amputation stump (principal); E11.621 Type 2 diabetes mellitus with foot ulcer; L97.521 Non-pressure chronic ulcer of other part of left foot limited to breakdown of skin; E11.69 Type 2 diabetes mellitus with other specified complication; M86.8X7 Other osteomyelitis, ankle and foot; I10 Essential (primary) hypertension; E78.00 Pure hypercholesterolemia, unspecified; Z90.49 Acquired absence of other specified parts of digestive tract; Z87.891 Personal history of nicotine dependence; Y83.5 Amputation of limb(s) as the cause of abnormal reaction of the patient, or of later complication, without mention of misadventure at the time of the procedure
CPT/HCPCS: 97597; A6206; A6209; A6446

== ENCOUNTER 2018-02-22 09:56 | Day surgery (SDC) | payer MEDICARE, MEDICAID | END 2018-02-22 11:54 | disposition home or self-care (01) | LOC: WOUND CARE 09:56 | PROVIDERS: ATTEND Surgery | DX: T81.89XD Other complications of procedures, not elsewhere classified, subsequent encounter (principal); E11.621 Type 2 diabetes mellitus with foot ulcer; L97.523 Non-pressure chronic ulcer of other part of left foot with necrosis of muscle; E11.69 Type 2 diabetes mellitus with other specified complication; M86.572 Other chronic hematogenous osteomyelitis, left ankle and foot; E11.65 Type 2 diabetes mellitus with hyperglycemia; I10 Essential (primary) hypertension; E78.00 Pure hypercholesterolemia, unspecified; Z90.49 Acquired absence of other specified parts of digestive tract; Z87.891 Personal history of nicotine dependence; Y83.8 Other surgical procedures as the cause of abnormal reaction of the patient, or of later complication, without mention of misadventure at the time of the procedure | CPT/HCPCS: 11042; 36416; 82948; A6021; A6206; A6209 ==

== ENCOUNTER 2018-03-01 08:58 | Day surgery (SDC) | payer MEDICARE, MEDICAID ==
[~2018-03-01 08:58] MED LIST changes: -LEVO750T46 PO
== END 2018-03-01 10:06 | disposition home or self-care (01) ==
LOC: WOUND CARE 08:58
PROVIDERS: ATTEND Surgery
DX: T81.89XD Other complications of procedures, not elsewhere classified, subsequent encounter (principal); E11.621 Type 2 diabetes mellitus with foot ulcer; L97.523 Non-pressure chronic ulcer of other part of left foot with necrosis of muscle; E11.69 Type 2 diabetes mellitus with other specified complication; M86.572 Other chronic hematogenous osteomyelitis, left ankle and foot; E11.65 Type 2 diabetes mellitus with hyperglycemia; I10 Essential (primary) hypertension; E78.00 Pure hypercholesterolemia, unspecified; Z90.49 Acquired absence of other specified parts of digestive tract; Z87.891 Personal history of nicotine dependence; Y83.8 Other surgical procedures as the cause of abnormal reaction of the patient, or of later complication, without mention of misadventure at the time of the procedure
CPT/HCPCS: 11042; 11045; 36416; 82948; 87070; 87075; 87102; A6021; A6222; A6446; 87186

== ENCOUNTER 2018-03-04 09:10 | Day surgery (SDC) | payer MEDICARE, MEDICAID ==
[2018-03-04] MEDS ORDERED: CLIN-80 PO (14:32)
== END 2018-03-04 10:47 | disposition home or self-care (01) ==
LOC: WOUND CARE 09:10
PROVIDERS: ATTEND Surgery
DX: T81.89XD Other complications of procedures, not elsewhere classified, subsequent encounter (principal); E11.621 Type 2 diabetes mellitus with foot ulcer; L97.523 Non-pressure chronic ulcer of other part of left foot with necrosis of muscle; E11.69 Type 2 diabetes mellitus with other specified complication; E11.65 Type 2 diabetes mellitus with hyperglycemia; M86.572 Other chronic hematogenous osteomyelitis, left ankle and foot; E11.40 Type 2 diabetes mellitus with diabetic neuropathy, unspecified; I10 Essential (primary) hypertension; E78.00 Pure hypercholesterolemia, unspecified; Z90.49 Acquired absence of other specified parts of digestive tract; Z87.891 Personal history of nicotine dependence; Y83.8 Other surgical procedures as the cause of abnormal reaction of the patient, or of later complication, without mention of misadventure at the time of the procedure
CPT/HCPCS: 11042; 36416; 82948; A6021; A6206; A6209; A6446

== ENCOUNTER 2018-03-11 09:03 | Day surgery (SDC) | payer MEDICARE, MEDICAID ==
[~2018-03-11 09:03] MED LIST changes: +CLIN-80 PO
== END 2018-03-11 10:55 | disposition home or self-care (01) ==
LOC: WOUND CARE 09:03
PROVIDERS: ATTEND Surgery
DX: T81.89XD Other complications of procedures, not elsewhere classified, subsequent encounter (principal); E11.621 Type 2 diabetes mellitus with foot ulcer; L97.523 Non-pressure chronic ulcer of other part of left foot with necrosis of muscle; E11.69 Type 2 diabetes mellitus with other specified complication; M86.572 Other chronic hematogenous osteomyelitis, left ankle and foot; E11.65 Type 2 diabetes mellitus with hyperglycemia; E11.40 Type 2 diabetes mellitus with diabetic neuropathy, unspecified; I10 Essential (primary) hypertension; E78.00 Pure hypercholesterolemia, unspecified; Z90.49 Acquired absence of other specified parts of digestive tract; Z87.891 Personal history of nicotine dependence; Y83.8 Other surgical procedures as the cause of abnormal reaction of the patient, or of later complication, without mention of misadventure at the time of the procedure
CPT/HCPCS: 11042; 11045; 36416; 82948; A6021; A6206; A6209; A6446; A6250

== ENCOUNTER 2018-03-17 12:54 | Day surgery (SDC) | payer MEDICARE, MEDICAID ==
[~2018-03-17 12:54] MED LIST changes: -METR500T4 PO
== END 2018-03-17 14:59 | disposition home or self-care (01) ==
LOC: WOUND CARE 12:54
PROVIDERS: ATTEND Surgery
DX: T81.89XD Other complications of procedures, not elsewhere classified, subsequent encounter (principal); E11.621 Type 2 diabetes mellitus with foot ulcer; L97.523 Non-pressure chronic ulcer of other part of left foot with necrosis of muscle; E11.69 Type 2 diabetes mellitus with other specified complication; M86.572 Other chronic hematogenous osteomyelitis, left ankle and foot; E11.65 Type 2 diabetes mellitus with hyperglycemia; E11.40 Type 2 diabetes mellitus with diabetic neuropathy, unspecified; I10 Essential (primary) hypertension; E78.00 Pure hypercholesterolemia, unspecified; Z90.49 Acquired absence of other specified parts of digestive tract; Z87.891 Personal history of nicotine dependence; Y83.8 Other surgical procedures as the cause of abnormal reaction of the patient, or of later complication, without mention of misadventure at the time of the procedure
CPT/HCPCS: 36416; 82948; A6021; A6209; A6222; A6446; C5275; Q4102; A6250

== ENCOUNTER 2018-03-24 09:29 | Day surgery (SDC) | payer MEDICARE, MEDICAID ==
[2018-03-24] MEDS ORDERED: LIDOcaine 2% 5ml jelly ONE (09:52)
== END 2018-03-24 11:18 | disposition home or self-care (01) ==
LOC: WOUND CARE 09:29
PROVIDERS: ATTEND Surgery
DX: T81.89XD Other complications of procedures, not elsewhere classified, subsequent encounter (principal); E11.621 Type 2 diabetes mellitus with foot ulcer; L97.523 Non-pressure chronic ulcer of other part of left foot with necrosis of muscle; E11.69 Type 2 diabetes mellitus with other specified complication; M86.572 Other chronic hematogenous osteomyelitis, left ankle and foot; E11.65 Type 2 diabetes mellitus with hyperglycemia; E11.40 Type 2 diabetes mellitus with diabetic neuropathy, unspecified; I10 Essential (primary) hypertension; E78.00 Pure hypercholesterolemia, unspecified; Z90.49 Acquired absence of other specified parts of digestive tract; Z87.891 Personal history of nicotine dependence; Y83.8 Other surgical procedures as the cause of abnormal reaction of the patient, or of later complication, without mention of misadventure at the time of the procedure
CPT/HCPCS: 36416; 82948; A6021; A6209; A6222; A6446; C5275; Q4102; A6250

== ENCOUNTER 2018-03-31 09:25 | Day surgery (SDC) | payer MEDICARE, MEDICAID ==
[~2018-03-31 09:25] MED LIST changes: -CLIN-80 PO; +CLIN300C70 PO
== END 2018-03-31 11:20 | disposition home or self-care (01) ==
LOC: WOUND CARE 09:25
PROVIDERS: ATTEND Surgery
DX: T81.89XD Other complications of procedures, not elsewhere classified, subsequent encounter (principal); E11.621 Type 2 diabetes mellitus with foot ulcer; L97.523 Non-pressure chronic ulcer of other part of left foot with necrosis of muscle; E11.69 Type 2 diabetes mellitus with other specified complication; M86.572 Other chronic hematogenous osteomyelitis, left ankle and foot; E11.65 Type 2 diabetes mellitus with hyperglycemia; E11.40 Type 2 diabetes mellitus with diabetic neuropathy, unspecified; I10 Essential (primary) hypertension; E78.00 Pure hypercholesterolemia, unspecified; Z90.49 Acquired absence of other specified parts of digestive tract; Z87.891 Personal history of nicotine dependence; Y83.8 Other surgical procedures as the cause of abnormal reaction of the patient, or of later complication, without mention of misadventure at the time of the procedure
CPT/HCPCS: 15275; 36416; 82948; A6209; A6222; A6446; Q4131; A6250

== ENCOUNTER 2018-04-06 09:24 | Day surgery (SDC) | payer MEDICARE, MEDICAID | END 2018-04-06 10:14 | disposition home or self-care (01) | LOC: WOUND CARE 09:24 | PROVIDERS: ATTEND Surgery | DX: T81.89XD Other complications of procedures, not elsewhere classified, subsequent encounter (principal); E11.621 Type 2 diabetes mellitus with foot ulcer; L97.523 Non-pressure chronic ulcer of other part of left foot with necrosis of muscle; E11.69 Type 2 diabetes mellitus with other specified complication; M86.572 Other chronic hematogenous osteomyelitis, left ankle and foot; E11.65 Type 2 diabetes mellitus with hyperglycemia; E11.40 Type 2 diabetes mellitus with diabetic neuropathy, unspecified; I10 Essential (primary) hypertension; E78.00 Pure hypercholesterolemia, unspecified; Z90.49 Acquired absence of other specified parts of digestive tract; Z87.891 Personal history of nicotine dependence; Y83.8 Other surgical procedures as the cause of abnormal reaction of the patient, or of later complication, without mention of misadventure at the time of the procedure | CPT/HCPCS: 15275; 36416; 82948; A6209; A6222; A6446; Q4131; A6250 ==

== ENCOUNTER 2018-04-14 09:33 | Day surgery (SDC) | payer MEDICARE, MEDICAID | END 2018-04-14 11:16 | disposition home or self-care (01) | LOC: WOUND CARE 09:33 | PROVIDERS: ATTEND Surgery | DX: T81.89XD Other complications of procedures, not elsewhere classified, subsequent encounter (principal); E11.621 Type 2 diabetes mellitus with foot ulcer; L97.523 Non-pressure chronic ulcer of other part of left foot with necrosis of muscle; E11.69 Type 2 diabetes mellitus with other specified complication; M86.572 Other chronic hematogenous osteomyelitis, left ankle and foot; E11.65 Type 2 diabetes mellitus with hyperglycemia; E11.40 Type 2 diabetes mellitus with diabetic neuropathy, unspecified; I10 Essential (primary) hypertension; E78.00 Pure hypercholesterolemia, unspecified; Z90.49 Acquired absence of other specified parts of digestive tract; Z87.891 Personal history of nicotine dependence; Y83.8 Other surgical procedures as the cause of abnormal reaction of the patient, or of later complication, without mention of misadventure at the time of the procedure | CPT/HCPCS: 15275; 36416; 82948; A6209; A6222; Q4131; A6250 ==

== ENCOUNTER 2018-04-20 09:07 | Outpatient (CLI) | payer MEDICARE, MEDICAID ==
[~2018-04-20 09:07] MED LIST changes: -CLIN300C70 PO
== END 2018-04-20 10:24 | disposition home or self-care (01) ==
LOC: WOUND CARE 09:07
PROVIDERS: ATTEND Surgery
DX: T81.89XD Other complications of procedures, not elsewhere classified, subsequent encounter (principal); E11.621 Type 2 diabetes mellitus with foot ulcer; L97.523 Non-pressure chronic ulcer of other part of left foot with necrosis of muscle; E11.69 Type 2 diabetes mellitus with other specified complication; M86.572 Other chronic hematogenous osteomyelitis, left ankle and foot; E11.65 Type 2 diabetes mellitus with hyperglycemia; E11.40 Type 2 diabetes mellitus with diabetic neuropathy, unspecified; I10 Essential (primary) hypertension; E78.00 Pure hypercholesterolemia, unspecified; Z90.49 Acquired absence of other specified parts of digestive tract; Z87.891 Personal history of nicotine dependence; Y83.8 Other surgical procedures as the cause of abnormal reaction of the patient, or of later complication, without mention of misadventure at the time of the procedure
CPT/HCPCS: 36416; 82948; 99215; A6021; A6212

== ENCOUNTER 2018-05-04 09:03 | Outpatient (CLI) | payer MEDICARE, MEDICAID | END 2018-05-04 10:41 | disposition home or self-care (01) | LOC: WOUND CARE 09:03 | PROVIDERS: ATTEND Surgery | DX: T81.89XD Other complications of procedures, not elsewhere classified, subsequent encounter (principal); E11.621 Type 2 diabetes mellitus with foot ulcer; L97.523 Non-pressure chronic ulcer of other part of left foot with necrosis of muscle; E11.69 Type 2 diabetes mellitus with other specified complication; M86.572 Other chronic hematogenous osteomyelitis, left ankle and foot; E11.65 Type 2 diabetes mellitus with hyperglycemia; E11.40 Type 2 diabetes mellitus with diabetic neuropathy, unspecified; I10 Essential (primary) hypertension; E78.00 Pure hypercholesterolemia, unspecified; Z90.49 Acquired absence of other specified parts of digestive tract; Z87.891 Personal history of nicotine dependence; Y83.8 Other surgical procedures as the cause of abnormal reaction of the patient, or of later complication, without mention of misadventure at the time of the procedure | CPT/HCPCS: 36416; 82948; 99215; A4414; A6212 ==

== ENCOUNTER 2018-05-18 08:30 | Outpatient (CLI) | payer MEDICARE, MEDICAID | END 2018-05-18 10:35 | disposition home or self-care (01) | LOC: WOUND CARE 08:30 → EDSTATUS 09:00 → WOUND CARE 10:35 | PROVIDERS: ATTEND Surgery | DX: T81.89XD Other complications of procedures, not elsewhere classified, subsequent encounter (principal); E11.621 Type 2 diabetes mellitus with foot ulcer; L97.523 Non-pressure chronic ulcer of other part of left foot with necrosis of muscle; E11.69 Type 2 diabetes mellitus with other specified complication; M86.572 Other chronic hematogenous osteomyelitis, left ankle and foot; E11.65 Type 2 diabetes mellitus with hyperglycemia; E11.40 Type 2 diabetes mellitus with diabetic neuropathy, unspecified; I10 Essential (primary) hypertension; E78.00 Pure hypercholesterolemia, unspecified; Z90.49 Acquired absence of other specified parts of digestive tract; Z87.891 Personal history of nicotine dependence; Y83.8 Other surgical procedures as the cause of abnormal reaction of the patient, or of later complication, without mention of misadventure at the time of the procedure | CPT/HCPCS: 36416; 82948; 99215 ==

== ENCOUNTER 2018-11-24 14:05 | Inpatient (IN) | payer MEDICARE, MEDICAID | END 2018-11-26 14:00 | disposition home or self-care (01) | LOC: ER 14:05 → ED HOLD 20:30 → SUR 3N 22:10 ==

== ENCOUNTER 2018-12-07 15:09 | Inpatient (IN) | payer MEDICARE, MEDICAID | END 2018-12-09 17:51 | disposition home or self-care (01) | LOC: ER 15:09 → PCU 3S 12-08 15:42 → ED HOLD 17:02 | DX: I12.9 Hypertensive chronic kidney disease with stage 1 through stage 4 chronic kidney disease, or unspecified chronic kidney disease (principal); N17.0 Acute kidney failure with tubular necrosis; N39.0 Urinary tract infection, site not specified; N18.3 Chronic kidney disease, stage 3 (moderate) ==

== ENCOUNTER 2019-03-14 02:15 | Outpatient (CLI) | payer MEDICARE, MEDICAID ==
[~2019-03-14 02:15] MED LIST changes: -AMLO5TAB16 PO; +ASPI-611 PO; +FLUV100T3 PO; -FLUV25TA3 PO; +GABA600T13 PO; -GABA600T2 PO; +INSU100V9 SQ; +LACT1CAP26 PO; +LEVO250T58 PO; -LURA20TA PO; +LURA80TA3 PO; -METO-395 PO; +OMEG1CAP13 PO; -OXYB5TAB11 PO; +RANI150T44 PO; +TRAZ-219 PO
== END 2019-03-14 23:59 | disposition home or self-care (01) ==
LOC: DIABETIC 02:15
PROVIDERS: ATTEND Nurse Practitioner Family
DX: E11.9 Type 2 diabetes mellitus without complications (principal); E66.9 Obesity, unspecified
CPT/HCPCS: G0108

== ENCOUNTER 2019-06-06 08:00 | Outpatient (CLI) | payer MEDICARE, MEDICAID ==
[~2019-06-06 08:00] MED LIST changes: +RANI-648 PO; -RANI150T44 PO
== END 2019-06-06 23:59 | disposition home or self-care (01) ==
LOC: DIABETIC 08:00
PROVIDERS: ATTEND Nurse Practitioner Family
DX: E11.9 Type 2 diabetes mellitus without complications (principal); Z71.3 Dietary counseling and surveillance; E66.8 Other obesity; Z68.32 Body mass index [BMI] 32.0-32.9, adult
CPT/HCPCS: G0108

== ENCOUNTER 2019-09-30 20:36 | Emergency (ER) | payer MEDICARE, MEDICAID ==
[~2019-09-30] VITALS: Ht 172.7 cm; Wt 97.0 kg
[2019-09-30] MEDS ORDERED: normal saline 1000ml 1,000 ML IVB ONE (21:14)
--- NOTE | 2019-09-30 21:17 | NUR ---
CM patel placed in room with a hat to catch urine.
[2019-09-30 21:22] LABS: BASOPHILS # (AUTO) 0.2 X10'3 (0-0.2); BASOPHILS % (AUTO) 1.2 % (0-1); EOSINOPHILS # (AUTO) 0.1 X10'3 (0-0.9); HEMATOCRIT 42.1 % (35.0-45.0); HEMOGLOBIN 14.5 g/dl (12.0-16.0); LYMPHOCYTES # (AUTO) 2.1 X10'3 (1.1-4.8); MEAN CORPUSCULAR HEMOGLOBIN 30.2 PG (27.0-31.0); MEAN CORPUSCULAR HGB CONC 34.5 g/dL (33.0-36.5); MEAN CORPUSCULAR VOLUME 87.6 FL (78-98); MEAN PLATELET VOLUME 8.3 FL (7.4-10.4); MONOCYTES # (AUTO) 0.9 X10'3 (0-0.9); MONOCYTES % (AUTO) 6.9 % (2-12); NEUTROPHILS # (AUTO) 9.7 X10'3 (1.8-7.7); NEUTROPHILS % (AUTO) 74.9 % (42-75); PLATELET COUNT 221 X10'3 (140-440); RED CELL DISTRIBUTION WIDTH 13.1 % (11.5-14.5); WHITE BLOOD COUNT 12.9 X10'3 (4.5-11.0)
[2019-09-30] MEDS ORDERED: CARB1TAB36 PO (21:34)
[2019-09-30] MEDS ORDERED: METO50TA16 PO (21:34)
[2019-09-30] MEDS ORDERED: PANT40TA4 PO (21:34)
[2019-09-30 21:36] LABS: ALANINE AMINOTRANSFERASE 14 U/L (12-78); ALBUMIN 3.8 G/DL (3.4-5.0); ALBUMIN/GLOBULIN RATIO 1.1 (1.1-1.5); ALKALINE PHOSPHATASE 82 IU/L (46-116); ANION GAP 13 (8-16); ASPARTATE AMINO TRANSFERASE 11 U/L (10-37); BILIRUBIN,TOTAL 0.8 MG/DL (0.1-1.0); BLOOD UREA NITROGEN 32 MG/DL (7-18); BUN/CREATININE RATIO 14.4 (6.6-38.0); CALCIUM 9.5 MG/DL (8.5-10.1); CHLORIDE 101 MMOL/L (99-107); CREATININE 2.22 MG/DL (0.40-0.90); GLUCOSE 335 MG/DL (70-104); LIPASE 218 U/L (73-393); POTASSIUM 4.2 MMOL/L (3.5-5.1); SODIUM 134 MMOL/L (135-145); TOTAL CARBON DIOXIDE 20.3 MMOL/L (24-32); TOTAL PROTEIN 7.4 G/DL (6.4-8.2); eGFR 22 ML/MIN
[2019-09-30 21:58] LABS: MAGNESIUM 1.6 MG/DL (1.5-2.4); PHOSPHORUS 2.4 MG/DL (2.3-4.5)
[2019-09-30 22:09] LABS: CLARITY,URINE CLOUDY (Clear); COLOR,URINE YELLOW (Yellow); GLUCOSE, URINE 100 mg/dl (Neg); KETONES,URINE TRACE mg/dl (Neg); LEUKOCYTE ESTERASE ,URINE LARGE (Neg); NITRITES, URINE NEGATIVE (Neg); OCCULT BLOOD,URINE SMALL (Neg); PROTEIN,URINE 30 mg/dl (Neg); UROBILINOGEN,URINE 0.2 E.U/dL (0.2-1.0)
[2019-09-30 22:15] LABS: UA COLLECTION TYPE URINAL
[2019-09-30 22:18] LABS: BACTERIA,URINE 3+ /HPF (Neg); MUCUS STRANDS NONE SEEN /LPF (Neg); RBC,URINE 0-2 /HPF (0-2); SQUAMOUS EPITHELIAL CELL,UR FEW /LPF (FEW); WBC,URINE TNTC /HPF (0-4)
[2019-09-30] MEDS ORDERED: levoFLOXACIN-Levaquin 500mg/D5 100 ML IV ONE (22:55)
[2019-09-30] MEDS ORDERED: LEVO500T2 PO (22:55)
--- NOTE | 2019-09-30 22:55 | NUR ---
pt was up for d/c but appears to have a UTI, Dr Rene watkins, he will order abx IV and amend d/c paperwork.
[2019-10-01 00:22] VITALS: BP 161/60
[2019-10-01] MEDS ORDERED: ONDA4TAB6 PO (18:22)
[2019-10-01] MEDS ORDERED: PHE25R PR (18:22)
== END 2019-10-01 00:24 | disposition home or self-care (01) ==
LOC: ER 20:37
DX: R19.7 Diarrhea, unspecified (principal); R11.0 Nausea; K59.00 Constipation, unspecified; H53.2 Diplopia
CPT/HCPCS: 36415; 71250; 74176; 80053; 81001; 82948; 83690; 83735; 84100; 84443; 85025; 87088; 96361; 96365; 96366; 99284; J1956; J7030

== ENCOUNTER 2019-10-01 16:05 | Emergency (ER) | payer MEDICARE, MEDICAID ==
[~2019-10-01] VITALS: Ht 172.7 cm; Wt 83.0 kg
[~2019-10-01 16:05] MED LIST changes: +CARB1TAB36 PO; +LEVO500T2 PO; +METO50TA16 PO; +PANT40TA4 PO
--- NOTE | 2019-10-01 17:34 | NUR ---
Dr. Griffin is in the room at this time.
[2019-10-01] MEDS ORDERED: ondansetron/PF 4mg/2ml inj IV ONE (17:35)
[2019-10-01] MEDS ORDERED: normal saline 1000ML IV soln IVB ONE (17:35)
[2019-10-01] MEDS ORDERED: PHE25R PR (18:22)
[2019-10-01] MEDS ORDERED: ONDA4TAB6 PO (18:22)
[2019-10-01 18:46] VITALS: BP 163/64
--- NOTE | 2019-10-01 18:59 | NUR ---
CALLED MARY ANNE, DAUGHTER, TO NOTIFIY OF PATIENT D/C STATUS. DAUGHTER STATES SHE IS ON HER WAY TO [employer]EL[employer] PATIENT. PT SITTING QUIETLY AND COMFORTABLY IN ROOM
== END 2019-10-01 19:16 | disposition home or self-care (01) ==
LOC: ER 16:06
DX: R11.0 Nausea (principal); R53.1 Weakness; K59.00 Constipation, unspecified; N18.9 Chronic kidney disease, unspecified; E11.22 Type 2 diabetes mellitus with diabetic chronic kidney disease; Z90.49 Acquired absence of other specified parts of digestive tract; Z98.51 Tubal ligation status; Z98.890 Other specified postprocedural states; Z88.0 Allergy status to penicillin; Z88.2 Allergy status to sulfonamides; Z79.82 Long term (current) use of aspirin; Z79.4 Long term (current) use of insulin; Z79.899 Other long term (current) drug therapy
CPT/HCPCS: 93005; 96374; 99284; J2405; J7030

== ENCOUNTER 2019-10-16 11:36 | Inpatient (IN) | payer MEDICARE, MEDICAID ==
[~2019-10-16] VITALS: Ht 172.7 cm; Wt 83.6 kg
[~2019-10-16 11:36] MED LIST changes: -GABA600T13 PO; -LEVO250T58 PO; -LEVO500T2 PO; -OMEG1CAP13 PO; +ONDA4TAB6 PO; +PHE25R PR; -RANI-648 PO
[2019-10-16 13:55] LABS: BASOPHILS # (AUTO) 0.1 X10'3 (0-0.2); BASOPHILS % (AUTO) 0.9 % (0-1); EOSINOPHILS # (AUTO) 0.2 X10'3 (0-0.9); EOSINOPHILS % (AUTO) 1.4 % (0-6); HEMATOCRIT 44.5 % (35.0-45.0); HEMOGLOBIN 15.5 g/dl (12.0-16.0); LYMPHOCYTES # (AUTO) 2.6 X10'3 (1.1-4.8); LYMPHOCYTES % (AUTO) 16.5 % (21-51); MEAN CORPUSCULAR HEMOGLOBIN 30.2 PG (27.0-31.0); MEAN CORPUSCULAR HGB CONC 34.8 g/dL (33.0-36.5); MEAN CORPUSCULAR VOLUME 86.8 FL (78-98); MEAN PLATELET VOLUME 8.6 FL (7.4-10.4); MONOCYTES # (AUTO) 1.1 X10'3 (0-0.9); MONOCYTES % (AUTO) 6.9 % (2-12); NEUTROPHILS # (AUTO) 11.8 X10'3 (1.8-7.7); NEUTROPHILS % (AUTO) 74.3 % (42-75); PLATELET COUNT 212 X10'3 (140-440); RED BLOOD COUNT 5.13 X10'6 (4.20-5.60); RED CELL DISTRIBUTION WIDTH 12.6 % (11.5-14.5); WHITE BLOOD COUNT 15.9 X10'3 (4.5-11.0)
[2019-10-16 14:10] LABS: ALANINE AMINOTRANSFERASE 20 U/L (12-78); ALBUMIN 3.5 G/DL (3.4-5.0); ALBUMIN/GLOBULIN RATIO 0.9 (1.1-1.5); ALKALINE PHOSPHATASE 95 IU/L (46-116); ANION GAP 18 (8-16); ASPARTATE AMINO TRANSFERASE 11 U/L (10-37); BILIRUBIN,TOTAL 1.5 MG/DL (0.1-1.0); BLOOD UREA NITROGEN 38 MG/DL (7-18); BUN/CREATININE RATIO 13.6 (6.6-38.0); CALCIUM 9.3 MG/DL (8.5-10.1); CHLORIDE 97 MMOL/L (99-107); CREATININE 2.79 MG/DL (0.40-0.90); GLUCOSE 344 MG/DL (70-104); POTASSIUM 4.1 MMOL/L (3.5-5.1); SODIUM 132 MMOL/L (135-145); TOTAL CARBON DIOXIDE 17.2 MMOL/L (24-32); TOTAL PROTEIN 7.6 G/DL (6.4-8.2); eGFR 17 ML/MIN
[2019-10-16] MEDS ORDERED: clindamycin phosphate inj 600 MG in normal saline 50ml IV soln 50 ML IV ONE (14:30)
[2019-10-16] MEDS ORDERED: clindamycin phosphate inj 600 MG in dextrose 5%-water 50ml 50 ML IV ONE (15:00)
[2019-10-16] MEDS ORDERED: vancomycin/NS 1 GM ADD-VANTAGE 250 ML IV ONE (15:10)
[2019-10-16] MEDS ORDERED: LACT1CAP26 PO (16:56)
[2019-10-16] MEDS ORDERED: acetaminophen 325mg tablet PO PRN (17:00)
[2019-10-16] MEDS ORDERED: morphine 2 MG/ML inj. syringe IV PRN ×2 (17:00)
[2019-10-16] MEDS ORDERED: magnesium hydroxide 30ml (MOM) UD suspension PO PRN (17:00)
[2019-10-16] MEDS ORDERED: mag hydrox/Alum hydrox/simeth 30ml oral suspension PO PRN (17:00)
[2019-10-16] MEDS ORDERED: PHE25R PR (17:01)
[2019-10-16 18:01] LABS: CLARITY,URINE CLOUDY (Clear); COLOR,URINE YELLOW (Yellow); GLUCOSE, URINE 100 mg/dl (Neg); KETONES,URINE NEGATIVE (Neg); LEUKOCYTE ESTERASE ,URINE MODERATE (Neg); NITRITES, URINE NEGATIVE (Neg); OCCULT BLOOD,URINE SMALL (Neg); PROTEIN,URINE TRACE mg/dl (Neg); UROBILINOGEN,URINE 0.2 E.U/dL (0.2-1.0)
[2019-10-16 18:11] LABS: UA COLLECTION TYPE STRAIGHT CATH
[2019-10-16 18:12] LABS: WBC,URINE TNTC /HPF (0-4)
[2019-10-16 18:13] LABS: BACTERIA,URINE 4+ /HPF (Neg); RBC,URINE 0-2 /HPF (0-2); SQUAMOUS EPITHELIAL CELL,UR FEW /LPF (FEW); TRANSITIONAL EPI CELLS,URINE FEW /HPF; WBC CLUMPS,URINE FEW /HPF (NEGATIVE)
[2019-10-16] MEDS: normal saline 1000ml 1,000 ML IV SCH (19:05)
[2019-10-16] MEDS: clindamycin 600mg/D5W 50ml 50 ML IV SCH (20:08)
[2019-10-16] MEDS: heparin, porcine 5000 units/ml vial SQ SCH (20:42)
[2019-10-16] MEDS: ondansetron/PF 4mg/2ml inj IV PRN (20:46)
--- NOTE | 2019-10-16 21:10 | NUR ---
Patient in room ED 11. I have received report from Yimi MATHIS in the ED and had the opportunity to ask questions and awaiting for arrival of patient to the PCU unit.
[2019-10-16] MEDS ORDERED: glucagon, human recombinant 1mg kit SUBCUT PRN (21:20)
[2019-10-16] MEDS ORDERED: dextrose 50%-water 50ml dispensing syringe IV PRN ×2 (21:20)
[2019-10-16] MEDS ORDERED: MESSAGE TO PHARMACY PO ONE (21:20)
[2019-10-16] MEDS ORDERED: dextrose ORAL solution 15 GM/59 ML bottle PO PRN ×2 (21:20)
--- NOTE | 2019-10-16 21:30 | NUR ---
Patient arrived to the PCU unit at this time. She was [facility] to the bed using a slideboard. She is alert and oriented and able to make her needs known. She denies any pain. Vitals are stable. She is on room air. Safety precautions in place. Will continue to monitor.
[2019-10-16 21:35] VITALS: BP 113/64
[2019-10-16] MEDS: traZODone 50mg tablet PO SCH (21:47)
[2019-10-16] MEDS: fluvoxamine 25 MG tablet PO SCH (21:47)
[2019-10-16] MEDS: carbidoba-levodopa 25-100mg tablet PO SCH (21:51)
[2019-10-16] MEDS: insulin Lispro (HumaLOG) vial - multi-dose SQ SCH (22:01)
[2019-10-16] MEDS: insulin glargine (Lantus) pen - multi-dose SQ SCH (22:01)
[2019-10-16 22:06] LABS: HEMOGLOBIN A1C 7.2 % (4.5-6.2)
[2019-10-16] MEDS ORDERED: FLU VACC QS2019-20 36MOS UP/PF 60 MCG/0.5 ML SYRINGE IMVAC ONE (22:55)
[2019-10-17] VITALS (10 sets, daily range): BP systolic 108–153; BP diastolic 37–66
[2019-10-17 01:45] LABS: BASOPHILS # (AUTO) 0.2 X10'3 (0-0.2); BASOPHILS % (AUTO) 1.4 % (0-1); EOSINOPHILS # (AUTO) 0.5 X10'3 (0-0.9); HEMATOCRIT 39.5 % (35.0-45.0); HEMOGLOBIN 13.9 g/dl (12.0-16.0); LYMPHOCYTES # (AUTO) 2.4 X10'3 (1.1-4.8); MEAN CORPUSCULAR HGB CONC 35.1 g/dL (33.0-36.5); MEAN CORPUSCULAR VOLUME 85.5 FL (78-98); MEAN PLATELET VOLUME 8.5 FL (7.4-10.4); MONOCYTES # (AUTO) 0.9 X10'3 (0-0.9); MONOCYTES % (AUTO) 7.6 % (2-12); NEUTROPHILS # (AUTO) 7.5 X10'3 (1.8-7.7); PLATELET COUNT 176 X10'3 (140-440); RED BLOOD COUNT 4.62 X10'6 (4.20-5.60); RED CELL DISTRIBUTION WIDTH 12.4 % (11.5-14.5); WHITE BLOOD COUNT 11.4 X10'3 (4.5-11.0)
[2019-10-17 02:01] LABS: ALBUMIN 2.8 G/DL (3.4-5.0); ANION GAP 12 (8-16); BLOOD UREA NITROGEN 36 MG/DL (7-18); BUN/CREATININE RATIO 14.4 (6.6-38.0); CHLORIDE 104 MMOL/L (99-107); GLUCOSE 262 MG/DL (70-104); POTASSIUM 3.2 MMOL/L (3.5-5.1); SODIUM 137 MMOL/L (135-145); TOTAL CARBON DIOXIDE 20.7 MMOL/L (24-32); eGFR 19 ML/MIN
[2019-10-17] MEDS: clindamycin 600mg/D5W 50ml 50 ML IV SCH ×4 (02:12→21:18)
[2019-10-17] MEDS ORDERED: magnesium 2GM in 50ml NS 50 ML IV PRN (02:20)
[2019-10-17] MEDS ORDERED: potassium Cl 20 mEq SR tablet PO PRN ×2 (02:20)
[2019-10-17] MEDS ORDERED: potassium CL 10mEq/100ml bag 100 ML IV PRN (02:20)
[2019-10-17] MEDS ORDERED: magnesium 4gm in 100ml NS 100 ML IV PRN (02:20)
[2019-10-17] MEDS: ondansetron/PF 4mg/2ml inj IV PRN ×2 (03:03→08:45)
[2019-10-17] MEDS: normal saline 1000ml 1,000 ML IV SCH ×3 (05:30→23:54)
[2019-10-17 05:48] LABS: MAGNESIUM 1.6 MG/DL (1.5-2.4); POTASSIUM 3.5 MMOL/L (3.5-5.1)
--- NOTE | 2019-10-17 06:47 | NUR ---
Problems reprioritized. Patient report given, questions answered & plan of care reviewed with Fe RN.
--- NOTE | 2019-10-17 06:47 | NUR ---
Patient in room PCU 3018. I have received report from DELFINA Hogan and had the opportunity to ask questions and assume patient care.
[2019-10-17] MEDS: K and/or MAG REPLACEMENT MC SCH ×2 (08:00→20:00)
[2019-10-17] MEDS: fluvoxamine 25 MG tablet PO SCH ×3 (08:48→21:17)
[2019-10-17] MEDS: carbidoba-levodopa 25-100mg tablet PO SCH ×3 (08:49→21:17)
[2019-10-17] MEDS: aspirin 81mg tablet.DR PO SCH (08:50)
[2019-10-17] MEDS: metoprolol tartrate 50mg tablet PO SCH (08:50)
[2019-10-17] MEDS: pantoprazole 40mg Tablet.DR PO SCH (08:50)
[2019-10-17] MEDS: heparin, porcine 5000 units/ml vial SQ SCH ×2 (08:51→21:17)
[2019-10-17] MEDS: insulin Lispro (HumaLOG) vial - multi-dose SQ SCH ×3 (09:08→19:55)
--- NOTE | 2019-10-17 14:54 | NUR ---
Malnutrition consult: Pt admit w/ R groin/labia majora cellulitis. Possible sepsis per MD note but sepsis score 0 at this time per EMR. RD attempted to visit pt bedside given hx DM A1C 7.2 and pt in restroom during initial and f/u attempted RD visit. Unable to provide DM ed at this time. Pt is well-nourished, well developed per MD note, no edema, no significant weakness, and current wt pt stated so unable to obtain accurate wt hx. PO 25% first meal this admit w/ further PO pending. At this time pt does not meet minimum malnutrition criteria. Will continue to monitor for additional criteria this admit as well as additional protein needs pending further PO hx. Addendum: 10/17/19 at [address] Amended: Links added.
[2019-10-17] MEDS: VANCOmycin 1250MG/NS 250ml Bag 250 ML IV SCH (15:58)
--- NOTE | 2019-10-17 17:06 | NUR ---
Sent to Dr Ayers PAGER ID: [phone] MESSAGE: RE: Keira Young [id number]. FYI pt DBP trending down. -Fe [phone]
--- NOTE | 2019-10-17 18:30 | NUR ---
Problems reprioritized. Patient report given, questions answered & plan of care reviewed with DELFINA Harris.
[2019-10-17] MEDS: traZODone 50mg tablet PO SCH (21:17)
[2019-10-17] MEDS: insulin glargine (Lantus) pen - multi-dose SQ SCH (22:13)
[2019-10-18 02:00] VITALS: BP 122/44
[2019-10-18] MEDS: clindamycin 600mg/D5W 50ml 50 ML IV SCH ×4 (02:28→21:14)
[2019-10-18 06:00] VITALS: BP 131/47
--- NOTE | 2019-10-18 06:15 | NUR ---
Patient in room PCU 3018. I have received report from DELFINA Harris and had the opportunity to ask questions and assume patient care.
[2019-10-18 06:17] LABS: BASOPHILS # (AUTO) 0.1 X10'3 (0-0.2); EOSINOPHILS # (AUTO) 0.4 X10'3 (0-0.9); EOSINOPHILS % (AUTO) 5.6 % (0-6); HEMATOCRIT 34.8 % (35.0-45.0); HEMOGLOBIN 12.3 g/dl (12.0-16.0); LYMPHOCYTES # (AUTO) 1.9 X10'3 (1.1-4.8); LYMPHOCYTES % (AUTO) 27.2 % (21-51); MEAN CORPUSCULAR HEMOGLOBIN 30.6 PG (27.0-31.0); MEAN CORPUSCULAR HGB CONC 35.3 g/dL (33.0-36.5); MEAN CORPUSCULAR VOLUME 86.7 FL (78-98); MEAN PLATELET VOLUME 8.3 FL (7.4-10.4); MONOCYTES # (AUTO) 0.6 X10'3 (0-0.9); MONOCYTES % (AUTO) 8.3 % (2-12); NEUTROPHILS # (AUTO) 4.1 X10'3 (1.8-7.7); NEUTROPHILS % (AUTO) 57.9 % (42-75); PLATELET COUNT 153 X10'3 (140-440); RED BLOOD COUNT 4.01 X10'6 (4.20-5.60); RED CELL DISTRIBUTION WIDTH 12.8 % (11.5-14.5)
[2019-10-18 06:35] LABS: ALBUMIN 2.4 G/DL (3.4-5.0); ANION GAP 6 (8-16); BLOOD UREA NITROGEN 29 MG/DL (7-18); BUN/CREATININE RATIO 12.9 (6.6-38.0); CHLORIDE 109 MMOL/L (99-107); CREATININE 2.25 MG/DL (0.40-0.90); GLUCOSE 146 MG/DL (70-104); MAGNESIUM 1.5 MG/DL (1.5-2.4); POTASSIUM 3.5 MMOL/L (3.5-5.1); SODIUM 139 MMOL/L (135-145); eGFR 21 ML/MIN
--- NOTE | 2019-10-18 06:41 | NUR ---
Problems reprioritized. Patient report given, questions answered & plan of care reviewed with Fe RN.
[2019-10-18] MEDS: K and/or MAG REPLACEMENT MC SCH ×2 (08:00→21:04)
--- NOTE | 2019-10-18 08:30 | NUR ---
pt wound drained from right labia majora. approximately 20mL drained. swab sent down to lab for culture. purulent, bloody fluid. no c/o of pain.
[2019-10-18] MEDS: fluvoxamine 25 MG tablet PO SCH ×3 (08:49→21:15)
[2019-10-18] MEDS: pantoprazole 40mg Tablet.DR PO SCH (08:50)
[2019-10-18] MEDS: carbidoba-levodopa 25-100mg tablet PO SCH ×3 (08:50→21:15)
[2019-10-18] MEDS: metoprolol tartrate 50mg tablet PO SCH (08:50)
[2019-10-18] MEDS: heparin, porcine 5000 units/ml vial SQ SCH ×2 (08:50→21:30)
[2019-10-18] MEDS: aspirin 81mg tablet.DR PO SCH (08:50)
[2019-10-18] MEDS: normal saline 1000ml 1,000 ML IV SCH (09:00)
--- NOTE | 2019-10-18 09:05 | NUR ---
Sent to Dr Ayers PAGER ID: [phone] MESSAGE: RE: Keira Young [id number]. I need more specifics with the culture order. Please call me. -Fe [phone]
[2019-10-18] MEDS: insulin Lispro (HumaLOG) vial - multi-dose SQ SCH ×3 (09:31→19:20)
[2019-10-18 11:00] VITALS: BP 109/35
[2019-10-18 15:00] VITALS: BP 112/51
[2019-10-18] MEDS: VANCOmycin 1250MG/NS 250ml Bag 250 ML IV SCH (15:11)
--- NOTE | 2019-10-18 15:17 | NUR ---
Sent to Dr Ayers PAGER ID: [phone] MESSAGE: RE: Keira Young [id number]. Pt concerned about getting a yeast infection r/t all the abx she's receiving. -Fe [phone]
--- NOTE | 2019-10-18 18:27 | NUR ---
Patient in room PCU 3018. I have received report from Fe MATHIS and had the opportunity to ask questions and assume patient care.
--- NOTE | 2019-10-18 18:30 | NUR ---
Problems reprioritized. Patient report given, questions answered & plan of care reviewed with DELFINA Paredes.
[2019-10-18 19:00] VITALS: BP 113/53
[2019-10-18] MEDS: traZODone 50mg tablet PO SCH (21:15)
[2019-10-18] MEDS: lactobacillus rhamnosus 10,000 MMU CELLS/CAPSULE PO SCH (21:15)
[2019-10-18] MEDS: insulin glargine (Lantus) pen - multi-dose SQ SCH (21:34)
[2019-10-18 22:30] VITALS: BP 117/41
[2019-10-19] MEDS: clindamycin 600mg/D5W 50ml 50 ML IV SCH ×4 (01:48→21:04)
[2019-10-19 02:30] VITALS: BP 115/40
[2019-10-19] MEDS: normal saline 1000ml 1,000 ML IV SCH ×3 (03:39→15:58)
[2019-10-19 06:00] VITALS: BP 124/39
--- NOTE | 2019-10-19 06:08 | NUR ---
Problems reprioritized. Patient report given, questions answered & plan of care reviewed with Jessica MATHIS.
--- NOTE | 2019-10-19 06:10 | NUR ---
Patient in room PCU 3018. I have received report from Lena MATHIS and had the opportunity to ask questions and assume patient care.
[2019-10-19 06:17] LABS: BASOPHILS # (AUTO) 0.1 X10'3 (0-0.2); BASOPHILS % (AUTO) 1.1 % (0-1); EOSINOPHILS # (AUTO) 0.4 X10'3 (0-0.9); EOSINOPHILS % (AUTO) 6.5 % (0-6); HEMATOCRIT 32.9 % (35.0-45.0); HEMOGLOBIN 11.8 g/dl (12.0-16.0); LYMPHOCYTES # (AUTO) 1.9 X10'3 (1.1-4.8); LYMPHOCYTES % (AUTO) 32.5 % (21-51); MEAN CORPUSCULAR VOLUME 86.2 FL (78-98); MEAN PLATELET VOLUME 8.8 FL (7.4-10.4); MONOCYTES # (AUTO) 0.4 X10'3 (0-0.9); MONOCYTES % (AUTO) 7.4 % (2-12); NEUTROPHILS # (AUTO) 3.1 X10'3 (1.8-7.7); NEUTROPHILS % (AUTO) 52.5 % (42-75); PLATELET COUNT 159 X10'3 (140-440); RED BLOOD COUNT 3.81 X10'6 (4.20-5.60); RED CELL DISTRIBUTION WIDTH 12.5 % (11.5-14.5); WHITE BLOOD COUNT 5.9 X10'3 (4.5-11.0)
[2019-10-19 06:25] LABS: ALBUMIN 2.2 G/DL (3.4-5.0); ANION GAP 9 (8-16); BLOOD UREA NITROGEN 21 MG/DL (7-18); BUN/CREATININE RATIO 10.6 (6.6-38.0); CALCIUM 7.7 MG/DL (8.5-10.1); CHLORIDE 111 MMOL/L (99-107); CREATININE 1.99 MG/DL (0.40-0.90); GLUCOSE 119 MG/DL (70-104); MAGNESIUM 1.4 MG/DL (1.5-2.4); POTASSIUM 3.5 MMOL/L (3.5-5.1); SODIUM 142 MMOL/L (135-145); TOTAL CARBON DIOXIDE 22.1 MMOL/L (24-32); eGFR 25 ML/MIN
[2019-10-19 07:14] LABS: MEAN CORPUSCULAR HGB CONC 35.6 g/dL (33.0-36.5)
[2019-10-19] MEDS: K and/or MAG REPLACEMENT MC SCH ×2 (08:00→20:00)
[2019-10-19] MEDS: fluvoxamine 25 MG tablet PO SCH ×3 (08:04→20:59)
[2019-10-19] MEDS: lactobacillus rhamnosus 10,000 MMU CELLS/CAPSULE PO SCH ×2 (08:05→21:00)
[2019-10-19] MEDS: carbidoba-levodopa 25-100mg tablet PO SCH ×3 (08:06→20:59)
[2019-10-19] MEDS: aspirin 81mg tablet.DR PO SCH (08:06)
[2019-10-19] MEDS: pantoprazole 40mg Tablet.DR PO SCH (08:06)
[2019-10-19] MEDS: heparin, porcine 5000 units/ml vial SQ SCH ×2 (08:07→21:00)
[2019-10-19] MEDS: metoprolol tartrate 50mg tablet PO SCH (08:11)
[2019-10-19] MEDS: insulin Lispro (HumaLOG) vial - multi-dose SQ SCH ×2 (08:24→13:10)
[2019-10-19] MEDS: magnesium Cl slow-release 64mg tablet PO PRN ×2 (09:12→20:57)
[2019-10-19 11:00] VITALS: BP 111/41
[2019-10-19 15:00] VITALS: BP 124/49
[2019-10-19] MEDS: VANCOmycin 1250MG/NS 250ml Bag 250 ML IV SCH (15:54)
--- NOTE | 2019-10-19 18:00 | NUR ---
F/u: Pt seen at bedside provided with written and verbal protein and DM education with referral to outpatient DM class and RD contact information. Pt with no questions at this time. Pt reports fluctuating appetite, currently on heart healthy CHO controlled diet documented with 75-100% PO intake likely meeting nutrient needs. Pt denies food allergies or difficulty chewing/swallowing. LBM 10/16, pt reports she just received MoM prior to RD visit and requests power pudding with breakfast tomorrow, d/w dietary. Will continue to follow. Addendum: 10/19/19 at [address] Amended: Links added.
--- NOTE | 2019-10-19 18:11 | NUR ---
Problems reprioritized. Patient report given, questions answered & plan of care reviewed with Keyshawn MATHIS.
[2019-10-19 19:00] VITALS: BP 143/31
--- NOTE | 2019-10-19 19:27 | NUR ---
Patient in room PCU 3018. I have received report from DELFINA Lopez and had the opportunity to ask questions and assume patient care.
--- NOTE | 2019-10-19 19:27 | NUR ---
Patient consumed 0% of dinner. 1700 blood sugar 81. Will not be covering for dinner per nursing judgment.
[2019-10-19] MEDS: traZODone 50mg tablet PO SCH (20:58)
[2019-10-19] MEDS: insulin glargine (Lantus) pen - multi-dose SQ SCH (21:25)
--- NOTE | 2019-10-19 21:29 | NUR ---
Patient's GFR 25. Discussed and confirmed with patient that 26 unit give of long acting insulin to be administered. Patient stated understanding of education. Will continue to monitor closely.
[2019-10-19 23:00] VITALS: BP 120/38
[2019-10-20] VITALS (7 sets, daily range): BP systolic 54–160; BP diastolic 26–56
[2019-10-20] MEDS: clindamycin 600mg/D5W 50ml 50 ML IV SCH ×4 (01:06→20:24)
[2019-10-20] MEDS: normal saline 1000ml 1,000 ML IV SCH ×3 (01:07→20:25)
[2019-10-20 05:08] LABS: BASOPHILS # (AUTO) 0.1 X10'3 (0-0.2); BASOPHILS % (AUTO) 1.1 % (0-1); EOSINOPHILS # (AUTO) 0.4 X10'3 (0-0.9); EOSINOPHILS % (AUTO) 6.5 % (0-6); HEMATOCRIT 34.5 % (35.0-45.0); HEMOGLOBIN 12.2 g/dl (12.0-16.0); LYMPHOCYTES # (AUTO) 1.7 X10'3 (1.1-4.8); LYMPHOCYTES % (AUTO) 28.7 % (21-51); MEAN CORPUSCULAR HEMOGLOBIN 30.8 PG (27.0-31.0); MEAN CORPUSCULAR HGB CONC 35.4 g/dL (33.0-36.5); MEAN PLATELET VOLUME 7.9 FL (7.4-10.4); MONOCYTES # (AUTO) 0.4 X10'3 (0-0.9); MONOCYTES % (AUTO) 7.1 % (2-12); NEUTROPHILS # (AUTO) 3.3 X10'3 (1.8-7.7); NEUTROPHILS % (AUTO) 56.6 % (42-75); PLATELET COUNT 187 X10'3 (140-440); RED BLOOD COUNT 3.97 X10'6 (4.20-5.60); RED CELL DISTRIBUTION WIDTH 12.6 % (11.5-14.5); WHITE BLOOD COUNT 5.8 X10'3 (4.5-11.0)
[2019-10-20 05:20] LABS: ALBUMIN 2.3 G/DL (3.4-5.0); ANION GAP 9 (8-16); BLOOD UREA NITROGEN 19 MG/DL (7-18); BUN/CREATININE RATIO 10.1 (6.6-38.0); CALCIUM 7.9 MG/DL (8.5-10.1); CHLORIDE 111 MMOL/L (99-107); CREATININE 1.88 MG/DL (0.40-0.90); GLUCOSE 87 MG/DL (70-104); MAGNESIUM 1.5 MG/DL (1.5-2.4); POTASSIUM 3.9 MMOL/L (3.5-5.1); SODIUM 143 MMOL/L (135-145); eGFR 26 ML/MIN
--- NOTE | 2019-10-20 06:25 | NUR ---
Patient in room PCU 3018. I have received report from Keyshawn MATHIS and had the opportunity to ask questions and assume patient care.
--- NOTE | 2019-10-20 06:37 | NUR ---
Problems reprioritized. Patient report given, questions answered & plan of care reviewed with DELFINA Lopez.
[2019-10-20] MEDS: fluvoxamine 25 MG tablet PO SCH ×3 (07:32→20:25)
[2019-10-20] MEDS: aspirin 81mg tablet.DR PO SCH (07:33)
[2019-10-20] MEDS: carbidoba-levodopa 25-100mg tablet PO SCH ×3 (07:33→20:24)
[2019-10-20] MEDS: metoprolol tartrate 50mg tablet PO SCH (07:33)
[2019-10-20] MEDS: pantoprazole 40mg Tablet.DR PO SCH (07:33)
[2019-10-20] MEDS: lactobacillus rhamnosus 10,000 MMU CELLS/CAPSULE PO SCH ×2 (07:33→20:24)
[2019-10-20] MEDS: heparin, porcine 5000 units/ml vial SQ SCH ×2 (07:33→20:24)
[2019-10-20] MEDS: K and/or MAG REPLACEMENT MC SCH ×2 (08:00→20:00)
[2019-10-20] MEDS: ondansetron/PF 4mg/2ml inj IV PRN ×2 (08:14→14:04)
--- NOTE | 2019-10-20 09:07 | NUR ---
No AM insulin given this morning, blood glucose was 75 and pt did not eat breakfast
[2019-10-20] MEDS ORDERED: normal saline 1000ml 1,000 ML IV ONE (10:10)
--- NOTE | 2019-10-20 13:17 | NUR ---
Afternoon insulin not given, pt isnt eating and her blood glucose level was 130. Will continue to closely monitor.
[2019-10-20] MEDS ORDERED: VANCOMYCIN LEVEL IV ONE (14:30)
--- NOTE | 2019-10-20 14:42 | NUR ---
Paged Dr. Bridges re critical lab result PAGER ID: [phone] MESSAGE: Jessica MATHIS [phone], [phone], critical Vanco trough of 24.8, please advise, thanks!
--- NOTE | 2019-10-20 18:17 | NUR ---
Problems reprioritized. Patient report given, questions answered & plan of care reviewed with Marta MATHIS.
[2019-10-20] MEDS: traZODone 50mg tablet PO SCH (20:25)
[2019-10-20] MEDS: insulin glargine (Lantus) pen - multi-dose SQ SCH (21:00)
[2019-10-21] VITALS (7 sets, daily range): BP systolic 100–147; BP diastolic 32–56
[2019-10-21] MEDS: clindamycin 600mg/D5W 50ml 50 ML IV SCH ×2 (02:13→07:59)
[2019-10-21] MEDS: normal saline 1000ml 1,000 ML IV SCH (02:14)
[2019-10-21 05:50] LABS: BASOPHILS # (AUTO) 0.1 X10'3 (0-0.2); BASOPHILS % (AUTO) 1.1 % (0-1); EOSINOPHILS # (AUTO) 0.4 X10'3 (0-0.9); EOSINOPHILS % (AUTO) 5.4 % (0-6); HEMATOCRIT 35.2 % (35.0-45.0); HEMOGLOBIN 12.3 g/dl (12.0-16.0); LYMPHOCYTES # (AUTO) 1.5 X10'3 (1.1-4.8); LYMPHOCYTES % (AUTO) 21.3 % (21-51); MEAN CORPUSCULAR HEMOGLOBIN 30.6 PG (27.0-31.0); MEAN CORPUSCULAR HGB CONC 35.1 g/dL (33.0-36.5); MEAN CORPUSCULAR VOLUME 87.1 FL (78-98); MONOCYTES # (AUTO) 0.4 X10'3 (0-0.9); MONOCYTES % (AUTO) 6.2 % (2-12); NEUTROPHILS # (AUTO) 4.5 X10'3 (1.8-7.7); PLATELET COUNT 195 X10'3 (140-440); RED BLOOD COUNT 4.04 X10'6 (4.20-5.60); RED CELL DISTRIBUTION WIDTH 12.8 % (11.5-14.5); WHITE BLOOD COUNT 6.8 X10'3 (4.5-11.0)
--- NOTE | 2019-10-21 06:00 | NUR ---
Patient in room PCU 3018. I have received report from Shabnam MATHIS and had the opportunity to ask questions and assume patient care.
--- NOTE | 2019-10-21 06:11 | NUR ---
Problems reprioritized. Patient report given, questions answered & plan of care reviewed with Brenda MATHIS. Addendum: 10/21/19 at 0612 by Shabnam Olsen RN Amended: Links added.
[2019-10-21 06:21] LABS: ALBUMIN 2.4 G/DL (3.4-5.0); ANION GAP 10 (8-16); BLOOD UREA NITROGEN 14 MG/DL (7-18); BUN/CREATININE RATIO 7.8 (6.6-38.0); CALCIUM 8.2 MG/DL (8.5-10.1); CHLORIDE 112 MMOL/L (99-107); CREATININE 1.79 MG/DL (0.40-0.90); GLUCOSE 111 MG/DL (70-104); MAGNESIUM 1.6 MG/DL (1.5-2.4); POTASSIUM 3.9 MMOL/L (3.5-5.1); SODIUM 142 MMOL/L (135-145); TOTAL CARBON DIOXIDE 19.9 MMOL/L (24-32); eGFR 28 ML/MIN
[2019-10-21] MEDS: aspirin 81mg tablet.DR PO SCH (07:59)
[2019-10-21] MEDS: lactobacillus rhamnosus 10,000 MMU CELLS/CAPSULE PO SCH ×2 (07:59→21:25)
[2019-10-21] MEDS: carbidoba-levodopa 25-100mg tablet PO SCH ×3 (07:59→21:26)
[2019-10-21] MEDS: pantoprazole 40mg Tablet.DR PO SCH (08:00)
[2019-10-21] MEDS: fluvoxamine 25 MG tablet PO SCH ×3 (08:00→21:26)
[2019-10-21] MEDS: K and/or MAG REPLACEMENT MC SCH ×2 (08:00→21:12)
[2019-10-21] MEDS: heparin, porcine 5000 units/ml vial SQ SCH ×2 (08:00→21:26)
[2019-10-21] MEDS: metoprolol tartrate 50mg tablet PO SCH (08:01)
[2019-10-21] MEDS ORDERED: bisacodyl 10mg suppository rectal RC PRN (10:25)
--- NOTE | 2019-10-21 10:45 | NUR ---
on floor. Informed that pt had positive orthostatic v/s from supine SBP 127 to sitting SBP 101. Will follow up with orthostatic vitals wearing glynn hose.
--- NOTE | 2019-10-21 13:50 | NUR ---
Paged to update with Ortho v/s with TYLER hoswesley on PAGER ID: [phone] MESSAGE: [id number] Monique Young Ortho V/S still positive with TYLER hose on. Supine SBP 137, Sit SBP 118, Stand SBP 124. Jordy Aba [id number]
--- NOTE | 2019-10-21 14:35 | NUR ---
Reassessment: still no BM since 10/16, last received milk of magnesia 10/19. PO intake declined from 50-75% to 25%. Admitted with cellulitis and draining right groin abscess. Poor appetite may be r/t constipation. Noted that she received dulcolax today at 12:22, if does not relieve constipation may benefit from routine bowel care, notified MD through [facility] and spoke with bedside RN. Will continue to follow. Recommend: 1. continue heart healthy, carb controlled diet 2. may benefit from routine bowel care in view of no BM in 5 days, d/w RN and notified MD 3. weight per rx Addendum: 10/21/19 at [address] Amended: Links added.
--- NOTE | 2019-10-21 15:53 | NUR ---
Rojelio SIMS regarding IV access PAGER ID: [phone] MESSAGE: [id number] Melissa Young PIV dislodged. No IVF or IVAbx ordered. Do you still want IV access? Jordy [phone]
[2019-10-21] MEDS: clindamycin 150mg capsule PO SCH ×2 (16:11→21:26)
--- NOTE | 2019-10-21 16:15 | NUR ---
Per Yuliana SIMS pt. ok to be without IV access.
--- NOTE | 2019-10-21 18:39 | NUR ---
Problems reprioritized. Patient report given, questions answered & plan of care reviewed with Lena MATHIS.
--- NOTE | 2019-10-21 18:40 | NUR ---
Patient in room PCU 3018. I have received report from Brenda MATHIS and had the opportunity to ask questions and assume patient care.
[2019-10-21] MEDS: insulin glargine (Lantus) pen - multi-dose SQ SCH (21:00)
[2019-10-21] MEDS: traZODone 50mg tablet PO SCH (21:26)
--- NOTE | 2019-10-21 23:33 | NUR ---
Problems reprioritized. Patient report given, questions answered & plan of care reviewed with Pat RN.
[2019-10-22] MEDS: clindamycin 150mg capsule PO SCH ×3 (02:27→13:50)
[2019-10-22 02:30] VITALS: BP 150/45
[2019-10-22 06:00] VITALS: BP 140/75
--- NOTE | 2019-10-22 06:05 | NUR ---
Patient in room PCU 3018. I have received report from DELFINA Kat and had the opportunity to ask questions and assume patient care. Patient is asleep at this time with a present chest rise/fall. Will continue to monitor the patient.
[2019-10-22] MEDS: heparin, porcine 5000 units/ml vial SQ SCH (07:35)
[2019-10-22] MEDS: lactobacillus rhamnosus 10,000 MMU CELLS/CAPSULE PO SCH (07:35)
[2019-10-22] MEDS: carbidoba-levodopa 25-100mg tablet PO SCH ×2 (07:36→13:18)
[2019-10-22] MEDS: aspirin 81mg tablet.DR PO SCH (07:36)
[2019-10-22] MEDS: pantoprazole 40mg Tablet.DR PO SCH (07:36)
[2019-10-22] MEDS: fluvoxamine 25 MG tablet PO SCH ×2 (07:36→13:18)
[2019-10-22] MEDS: metoprolol tartrate 50mg tablet PO SCH (07:36)
[2019-10-22] MEDS: K and/or MAG REPLACEMENT MC SCH (08:00)
--- NOTE | 2019-10-22 10:36 | NUR ---
Called report to [facility] and RN is currently in the room with a patient. DELFINA Olivier will call back. Will await call.
--- NOTE | 2019-10-22 10:51 | NUR ---
DELFINA Olivier from [facility] has called and received report on the patient. Informed her that the patient is to be transferred to [facility] today. Patients wound care has been completed, and so have the pictures. Informed Charline that pt has no PIV, and per noc RN Shey SIMS is ok with this. However, there is no order in the chart. Will prepare patient for transfer.
--- NOTE | 2019-10-22 10:51 | NUR ---
received from ophelia holman
--- NOTE | 2019-10-22 11:05 | NUR ---
Patient has been transferred to room 4006 on [facility]. Patients only belongings were a cell phone and no financial institution vice president. Patient has cell phone on her. Patient was transferred to the [facility] bed with assistance. Patient has been oriented to the room and her Primary RN, Charline. Patient has no complaints at this time.
[2019-10-22 12:08] VITALS: BP 145/55
--- NOTE | 2019-10-22 14:03 | NUR ---
gave report to kavon at [facility]
--- NOTE | 2019-10-22 14:27 | NUR ---
[facility]
== END 2019-10-22 14:15 | DRG 871 ==
LOC: ER 11:36 → ED HOLD 17:00 → PCU 3S 21:25 → ORTHO 4S 10-22 11:12
PROVIDERS: ADMIT Family Medicine; ATTEND Family Medicine
DX: A41.9 Sepsis, unspecified organism (principal); E43 Unspecified severe protein-calorie malnutrition; N17.0 Acute kidney failure with tubular necrosis; N39.0 Urinary tract infection, site not specified; E87.1 Hypo-osmolality and hyponatremia; L02.214 Cutaneous abscess of groin; N76.2 Acute vulvitis; N18.3 Chronic kidney disease, stage 3 (moderate); K21.9 Gastro-esophageal reflux disease without esophagitis; E11.22 Type 2 diabetes mellitus with diabetic chronic kidney disease; I25.10 Atherosclerotic heart disease of native coronary artery without angina pectoris; K59.00 Constipation, unspecified; Z79.4 Long term (current) use of insulin; Z79.82 Long term (current) use of aspirin; Z79.899 Other long term (current) drug therapy; Z68.28 Body mass index [BMI] 28.0-28.9, adult
CPT/HCPCS: 36415; 71045; 74176; 80048; 80053; 80202; 81001; 82948; 83036; 83605; 83735; 83880; 84132; 84145; 84484; 85025; 85610; 87040; 87070; 87077; 87081; 87088; 87186; 93005; 96365; 96368; 97110; 97112; 97116; 97161; 97530; 99285; G0378; J1644; J1815; J2405; J3370; J3490; J7030; J7060; Q2037